=== PATIENT | male | born 1935 | race Hispanic/Latino ===

== ENCOUNTER 2020-02-01 16:40 | Emergency (ER) | payer MEDICARE ==
[~2020-02-01] VITALS: Ht 157.5 cm; Wt 60.3 kg
[~2020-02-01 16:40] MED LIST: 70/30 SC; ACETAMINOPHEN650 M1 PO; ASPIR 8181 MG PO; CAPTOPRIL50 MG PO; FLONASE16 GM; HUMALOG KWIKPEN; HYDROCODON-ACE1 EA12; KEFLEX500 MG PO; LATANOPROST2.5 ML; LATANOPROST2.5 ML OU; LEVOCETIRIZINE D5 MG PO; METOPROLOL SUCC25 MG PO; MULTIVITAMINS1 EAC8; NIFEDIPINE ER30 MG PO; NORCO 7.5-3251 EACH PO; NOVOLOG; NOVOLOG100 UNITS1 SC; PRAVASTATIN SOD40 MG PO; TAMSULOSIN HCL0.4 MG PO; ULTRAM50 MG PO; ZOFRAN4 MG PO; [UNRECOGNIZED DRUG - REMARK]
--- OUTSIDE RECORDS SUMMARY | 2020-02-01 16:46 | XMS REPORT ---
Author Author [facility] Address Unknown Phone Unavailable Care Team Providers Care Systems Mgr Name Role Phone SATINDER HINOJOSA Unavailable Unavailable Problems This patient has no known problems. Allergies, Adverse Reactions, Alerts This patient has no known allergies or adverse reactions. Medications This patient has no known medications. Results Test Description Test Time Test Comments Text Results Atomic Results Result Comments Stress Test - Treadmill ONLY [place] [address] Patient Name : RAND MULLIGAN MR #: [id number] : 1935 Age/Sex: 82/M Adm Physician : SATINDER HINOJOSA MD Admit Date : 08/01/17 Location : MED/SURG Room/Bed : [facility] REPORT: Cardiology Report DATE OF STUDY: August 05, 2017 PROCEDURE TITLE Rest stress single isotope SPECT imaging with pharmacologic stress and gated SPECT imaging. INDICATIONS: Nonsustained ventricular tachycardia. PROCEDURE: Pharmacologic stress testing was performed with regadenoson per protocol. The heart rate was 60 beats per minute at baseline, and juancho to 82 beats per minute during the regadenoson infusion. The rest blood pressure was 181/71 and decreased to 93/44 mmHg, which is a normal response. The patient did not develop any significant symptoms. Resting electrocardiogram demonstrated normal sinus rhythm. There are no ST-segment changes consistent with myocardial ischemia. Myocardial perfusion imaging was performed at rest following the injection of 10 millicuries of tetrofosmin. At peak pharmacologic effect, the patient was injected with 32.1 millicuries of tetrofosmin. Gated post tomographic imaging was performed. FINDINGS: The pharmacologic study is fair. The left ventricular cavity is noted to be normal on the rest and stress studies. SPECT images demonstrate homogenous tracer distribution throughout the myocardium. Gated SPECT imaging reveals normal myocardial thickening and wall motion. The left ventricular ejection fraction was calculated to be greater than 70%. IMPRESSION: Myocardial perfusion imaging is normal. Overall left ventricular systolic function was normal without regional wall motion abnormalities. Job#: [id number] RI cc: SATINDER HINOJOSA MD Signature Date Dictated By: VIRGINIA DAWSON MD Transcribed By: EDS on 08/06/17 <Electronically signed by VIRGINIA DAWSON MD><<Signature on File>>09/08/17 1430 COPY TO: CHEST 2 VIEWS [place] [address] Patient Name: RAND MULLIGAN MR #: [id number] : 1935 Age/Sex: 82/M Req #: [id number] Adm Physician: Ordered by: EDIE CHIN MD Report #: [id number] Location: ER Room/Bed: Procedure: [id number] DX/CHEST 2 VIEWS Exam Date: 08/01/17 Exam Time: 1515 REPORT STATUS: Signed PROCEDURE: Frontal and lateral views of the chest. COMPARISON: Chest x-ray 08/26/2013. INDICATIONS: FEVER FINDINGS: Lines/tubes: None. Lungs: The lungs are well inflated and clear. There is no evidence of pneumonia or pulmonary edema. Pleura: There is no pleural effusion or pneumothorax. Heart and mediastinum: The heart and the mediastinum are normal. Atherosclerotic calcifications in the aorta. Bones: No acute bony abnormality. IMPRESSION: No acute cardiopulmonary disease. Dictated by: Oscar Clark M.D. on 08/01/2017 at 15:32 Electronically approved by: Oscar Clark M.D. on 08/01/2017 at 15:32 Dictated By: OSCAR CLARK MD 1532 Transcribed By: NED on 08/01/17 1532 COPY TO: EDIE CHIN MD
[2020-02-01 17:36] VITALS: BP 114/52
== END 2020-02-01 17:50 | disposition home or self-care (01) ==
LOC: ER 16:40
DX: H60.92 Unspecified otitis externa, left ear (principal); H61.22 Impacted cerumen, left ear; I10 Essential (primary) hypertension; E11.9 Type 2 diabetes mellitus without complications
CPT/HCPCS: 99282

== ENCOUNTER 2020-04-24 14:57 | Inpatient (IN) | payer MEDICARE, OTHER ==
[~2020-04-24] VITALS: Ht 162.6 cm; Wt 60.3 kg
--- OUTSIDE RECORDS SUMMARY | 2020-04-24 15:03 | XMS REPORT ---
Author Author [facility] t Organization [facility] Address [address] [place] [address] Phone Unavailable Care Team Providers Care Creative Resource Manager Name Role Phone YEN STEVENS, SHAWN PCP SATINDER HINOJOSA Attphys Unavailable SATINDER HINOJOSA Admphys Unavailable Payers Payer Name Policy Type Policy Number Effective Date Expiration Date Lucretia cheney Medicare A & B [id number] 2013 00:00:00 C [facility] Problems Condition Name Condition Details Condition Category Status Onset Date Resolution Date Last Treatment Date Treating Clinician Comments Source Atrial fibrillation with rapid ventricular response At [facility] fibrillation with rapid ventricular response Problem Active [facility] Gastroenteritis Gastroenteritis Problem Active [facility] Volume depletion, gastrointestinal loss Volume depletion, ga strointestinal loss Problem Active [facility] Allergies, Adverse Reactions, Alerts This patient has no known allergies or adverse reactions. Medications Ordered Medication Name Filled Medication Name Start Date Stop Da te Current Medication? Ordering Clinician Indication Dosage Frequency Signature (SIG) Comments Components Source 30 Yes 10 Twice A Day [facility] Aspirin (Aspir 81) 81 Mg Tablet. Aspirin (Aspir 81) 81 Mg Tablet. Yes 81 Daily [facility] Captopril 50 Mg Tablet Captopril 50 Mg Tablet Yes 25 Three Times A Day [facility] Cephalexin Monohydrate (Keflex) 500 Mg Capsule Cephale vito Monohydrate (Keflex) 500 Mg Capsule Yes 500 Twice A Day [facility] Humalog Kwikpen Humalog Kwikpen Yes Ss Bid [facility] Hydrocodone Bit/Acetaminophen ([place] 7.5-325 Tablet) 1 Each Tablet Hydrocodone Bit/Acetaminophen ([place] 7.5-325 Tablet) 1 Each Tablet Yes 1 Every 6 Hrs Prn [facility] Latanoprost 2.5 Ml Drops Latanoprost 2.5 Ml Drops Yes 1 Bedtime [facility] Pravastatin Sodium 40 Mg Tablet Pravastatin Sodium 40 Mg Tablet Yes 40 Every Evening [facility] Tamsulosin Hcl 0.4 Mg Cap.er.24h Tamsulosin Hcl 0.4 Mg Cap.er.24h Yes .4 Daily [facility] Novolog , Novolog , 2013-06-18 00:00:00 No [facility] Procedures This patient has no known procedures. Encounters Start Date/Time End Date/Time Encounter Type Admission Type [facility] Care Department Encounter ID Source 2020-02-01 16:40:00 2020-02-01 17:50:00 Departed Emergency Room [facility] [id number] [facility] Results Test Description Test Time Test Comments Results Result Comments Source Stress Test - Treadmill ONLY [place] [address] Patient Name : RAND MULLIGAN MR #: [id number] : 1935 Age/Sex: 82/M Adm Physician : SATINDER HINOJOSA MD Admit Date : 08/01/17 Location : MED/SURG Room/Bed : [facility] REPORT: Cardiology Report DATE OF STUDY: August [...] normal without regional wall motion abnormalities. Job#: [id number] RI cc: SATINDER HINOJOSA MD Signature Date Dictated By: VIRGINIA DAWSON MD Transcribed By: SMEDS on 08/06/17 <Electronically signed by VIRGINIA DAWSON MD><<Signature on File>>09/08/17 1431 COPY TO: CHEST 2 VIEWS [place] [address] Patient Name: RAND MULLIGAN MR #: [id number] : 1935 Age/Sex: 82/M Req #: [id number] Adm Physician: Ordered by: EDIE CHIN MD Report #: [id number] Location: ER Room/Bed: Procedure: [id number] DX/CHEST 2 VIEWS Exam Date: 08/01/17 Exam [...]
[2020-04-24] MEDS ORDERED: PIPER-TAZ 3.375 GM 50 ML IV STA (16:07)
[2020-04-24] MEDS ORDERED: SODIUM CHLORIDE 0.9% 1000ML 1,000 ML IV STA (16:07)
[2020-04-24] MEDS ORDERED: ACETAMINOPHEN 325 MG TAB PO ONE (16:15)
[2020-04-24 16:30] LABS: BASOPHILS # (AUTO) 0.1 (0.0-0.1); BASOPHILS % 0.3 % (0.0-1.0); EOSINOPHILS # (AUTO) 0.2 (0.0-0.4); EOSINOPHILS % 0.8 % (0.0-6.0); HEMATOCRIT 39.6 % (38.2-49.6); HEMOGLOBIN 12.6 g/dL (14.0-18.0); LYMPHOCYTES # (AUTO) 0.7 (1.0-3.2); LYMPHOCYTES % 3.8 % (18.0-39.1); MEAN CORPUSCULAR HEMOGLOBIN 30.1 pg (28-32); MEAN CORPUSCULAR HGB CONC 31.8 g/dL (31-35); MEAN CORPUSCULAR VOLUME 94.7 fL (81-99); MONOCYTES # (AUTO) 1.6 (0.2-0.8); MONOCYTES % 8.3 % (4.4-11.3); NEUTROPHILS # (AUTO) 15.9 (2.1-6.9); NEUTROPHILS % 85.1 % (38.7-80.0); PLATELET COUNT 183 x10e3/uL (140-360); RED BLOOD COUNT 4.18 x10e6/uL (4.3-5.7); RED CELL DISTRIBUTION WIDTH 14.2 % (11.7-14.4)
[2020-04-24 16:32] LABS: CLARITY,URINE CLEAR (CLEAR); COLOR,URINE YELLOW (YELLOW); LEUKOCYTE ESTERASE ,URINE SMALL (NEGATIVE); NITRITE,URINE NEGATIVE (NEGATIVE)
[2020-04-24 16:33] LABS: BILIRUBIN,URINE NEGATIVE (NEGATIVE); KETONES,URINE NEGATIVE (NEGATIVE); PROTEIN,URINE DIPSTICK 2+ (NEGATIVE); URINE UROBILINOGEN 0.2 mg/dL (0.2 - 1)
[2020-04-24 16:51] LABS: ALBUMIN 3.6 g/dL (3.5-5.0); ANION GAP 15.5 mmol/L (8-16); CALCIUM 9.3 mg/dL (8.4-10.2); CREATININE, SERUM 1.91 mg/dL (0.72-1.25); POTASSIUM 4.5 mmol/L (3.5-5.1)
--- NOTE | 2020-04-24 16:51 | Emergency Department Note ---
History of Present Illnes History of Present Illness Chief Complaint: Abdominal Complaints History of Present Illness This is a 85 year old male .c/o left side abd pain dysuria x 2 days CLIENT REPORTS LEFT SIDED ABDOMINAL PAIN AND PAINFUL URINATION FOR THE LAST 2 DAYS. CLIENT REPORTS FEVER WELL. Historian: Patient Arrival Mode: Car Onset (how long ago): day(s) (2 days) Location: left side abd pain Quality: mild Radiation: non-radiation, back, neck, extremity, abdomen, periumbilical, flank, proximal, distal, other Severity: mild Onset quality: gradual Duration (how long): day(s) (2 days ) Timing of current episode: constant Progression: unchanged Context: recent illness, recent surgery, recent immobilization, recent travel, trauma/injury, new medications, hx of DVT/PE, non-compliance w/ medications, other Relieving factors: none Exacerbating factors: none Treatments prior to arrival: none (MARIANNA SCHWARZ NP) Past Medical/Family History Physician Review I have reviewed the patient's past medical and family history. Any updates have been documented here. (MARIANNA SCHWARZ NP) Past Medical History Recent Fever: Yes Clinical Suspicion of Infectio: Yes New/Unexplained Change in Ment: No Past Medical History: Hypertension, Diabetes Past Surgical History: None Other Surgery: RIGHT FOOT PARTIAL AMPUTATION (MARIANNA SCHWARZ NP) Social History Smoking Cessation: Former smoker Counseling Performed: No Alcohol Use: None Any Illegal Drug Use: No TB Exposure/Symptoms: No Physically hurt or threatened: No (MARIANNA SCHWARZ NP) Other Last Tetanus: UNKNOWN Any Pre-Existing Lines (PICC,: No Is patient up to date on immun: Yes Last Flu: utd Last Pneumovax: utd (MARIANNA SCHWARZ NP) Review of Systems Review of Systems Constitutional: no symptoms, fever EENTM: no symptoms Cardiovascular: no symptoms Respiratory: no symptoms Gastrointestinal: abdominal pain (left side abd pain ) Genitourinary: dysuria Musculoskeletal: no symptoms Neurological: no symptoms Psychological: no symptoms Endocrine: no symptoms Hematological/Lymphatic: no symptoms Review of other systems All other systems reviewed and negative. (MARIANNA SCHWARZ NP) Physical Exam Related Data Allergies: Coded Allergies: No Known Allergies (Unverified , 02/15/14) Triage Vital Signs Vital Signs Date Time Temp Pulse Resp B/P (MAP) Pulse Ox O2 Delivery O2 Flow Rate FiO2 04/24/20 15:27 101.5 98 16 120/56 96 Vital Signs Date Time Temp Pulse Resp B/P (MAP) Pulse Ox O2 Delivery O2 Flow Rate FiO2 04/24/20 15:27 101.5 98 16 120/56 96 Vital signs reviewed: Yes (MARIANNA SCHWARZ SOFTWARE PROJECT MANAGER) Physical Exam CONSTITUTIONAL Constitutional: well-developed, well-nourished HENT HENT: normocephalic, atraumatic, oropharynx clear/moist, nose normal HENT L/R: left ext ear normal, right ext ear normal EYES Eyes: PERRL, conjunctivae normal NECK Neck: ROM normal PULMONARY Pulmonary: effort normal, breath sounds normal CARDIOVASCULAR Cardiovascular: regular rhythm, heart sounds normal, capillary refill normal, normal rate GASTROINTESTINAL Abdominal: soft; nontender (minimal left side tenderness ); bowel sounds normal GENITOURINARY Genitourinary: other (c/o dusuria ) SKIN Skin: warm, dry MUSCULOSKELETAL Musculoskeletal: other (left bka noted ) NEUROLOGICAL Neurological: alert, oriented x 3, no gross motor or sensory deficits PSYCHOLOGICAL Psychological: mood/affect normal, judgement normal Exam - additional comments noted temp 101 (MARIANNA SCHWARZ SOFTWARE PROJECT MANAGER) Results Laboratory Result Diagram: 04/24/20 1600 Laboratory Laboratory Tests Test 04/24/20 16:37 04/24/20 16:27 04/24/20 16:00 04/24/20 15:53 Bedside Glucose 101 mg/dL (70-120) White Blood Count 18.71 x10e3/uL (4.8-10.8) Red Blood Count 4.18 x10e6/uL (4.3-5.7) Hemoglobin 12.6 g/dL (14.0-18.0) Hematocrit 39.6 % (38.2-49.6) Mean Corpuscular Volume 94.7 fL (81-99) Mean Corpuscular Hemoglobin 30.1 pg (28-32) Mean Corpuscular Hemoglobin Concent 31.8 g/dL (31-35) Red Cell Distribution Width 14.2 % (11.7-14.4) Platelet Count 183 x10e3/uL (140-360) Neutrophils (%) (Auto) 85.1 % (38.7-80.0) Lymphocytes (%) (Auto) 3.8 % (18.0-39.1) Monocytes (%) (Auto) 8.3 % (4.4-11.3) Eosinophils (%) (Auto) 0.8 % (0.0-6.0) Basophils (%) (Auto) 0.3 % (0.0-1.0) Neutrophils # (Auto) 15.9 (2.1-6.9) Lymphocytes # (Auto) 0.7 (1.0-3.2) Monocytes # (Auto) 1.6 (0.2-0.8) Eosinophils # (Auto) 0.2 (0.0-0.4) Basophils # (Auto) 0.1 (0.0-0.1) Absolute Immature Granulocyte (auto 0.32 x10e3/uL (0-0.1) Sodium Level 140 mmol/L (136-145) Potassium Level 4.5 mmol/L (3.5-5.1) Chloride Level 108 mmol/L (98-107) Carbon Dioxide Level 21 mmol/L (22-29) Anion Gap 15.5 mmol/L (8-16) Blood Urea Nitrogen 38 mg/dL (7-26) Creatinine 1.91 mg/dL (0.72-1.25) Estimat Glomerular Filtration Rate 34 ML/MIN (60-) BUN/Creatinine Ratio 20 (6-25) Glucose Level 101 mg/dL (74-118) Lactic Acid Level 1.6 mmol/L (0.5-2.0) Calcium Level 9.3 mg/dL (8.4-10.2) Total Bilirubin 1.5 mg/dL (0.2-1.2) Aspartate Amino Transf (AST/SGOT) 16 IU/L (5-34) Alanine Aminotransferase (ALT/SGPT) 14 IU/L (0-55) Alkaline Phosphatase 46 IU/L (40-150) Creatine Kinase 308 IU/L (30-200) Creatine Kinase MB 2.10 ng/mL (0-5.0) Troponin I 0.034 ng/mL (0-0.300) Total Protein 7.1 g/dL (6.5-8.1) Albumin 3.6 g/dL (3.5-5.0) Globulin 3.5 g/dL (2.3-3.5) Albumin/Globulin Ratio 1.0 (0.8-2.0) Urine Color Yellow (YELLOW) Urine Clarity Clear (CLEAR) Urine pH 5.5 (5 - 7) Urine Specific [place] >=1.030 (1.010-1.025) Urine Protein 2+ (NEGATIVE) Urine Glucose (UA) Negative (NEGATIVE) Urine Ketones Negative (NEGATIVE) Urine Blood Moderate (NEGATIVE) Urine Nitrite Negative (NEGATIVE) Urine Bilirubin Negative (NEGATIVE) Urine Urobilinogen 0.2 mg/dL (0.2 - 1) Urine Leukocyte Esterase Small (NEGATIVE) Urine RBC 11-20 /HPF (0-5) Urine WBC 21-50 /HPF (0-5) Urine Epithelial Cells Few /LPF (NONE) Urine Bacteria Rare /HPF (NONE) Laboratory Tests Test 04/24/20 16:27 04/24/20 16:00 04/24/20 15:53 Bedside Glucose 101 mg/dL (70-120) White Blood Count 18.71 x10e3/uL (4.8-10.8) Red Blood Count 4.18 x10e6/uL (4.3-5.7) Hemoglobin 12.6 g/dL (14.0-18.0) Hematocrit 39.6 % (38.2-49.6) Mean Corpuscular Volume 94.7 fL (81-99) Mean Corpuscular Hemoglobin 30.1 pg (28-32) Mean Corpuscular Hemoglobin Concent 31.8 g/dL (31-35) Red Cell Distribution Width 14.2 % (11.7-14.4) Platelet Count 183 x10e3/uL (140-360) Neutrophils (%) (Auto) 85.1 % (38.7-80.0) Lymphocytes (%) (Auto) 3.8 % (18.0-39.1) Monocytes (%) (Auto) 8.3 % (4.4-11.3) Eosinophils (%) (Auto) 0.8 % (0.0-6.0) Basophils (%) (Auto) 0.3 % (0.0-1.0) Neutrophils # (Auto) 15.9 (2.1-6.9) Lymphocytes # (Auto) 0.7 (1.0-3.2) Monocytes # (Auto) 1.6 (0.2-0.8) Eosinophils # (Auto) 0.2 (0.0-0.4) Basophils # (Auto) 0.1 (0.0-0.1) Absolute Immature Granulocyte (auto 0.32 x10e3/uL (0-0.1) Urine Color Yellow (YELLOW) Urine Clarity Clear (CLEAR) Urine pH 5.5 (5 - 7) Urine Specific [place] >=1.030 (1.010-1.025) Urine Protein 2+ (NEGATIVE) Urine Glucose (UA) Negative (NEGATIVE) Urine Ketones Negative (NEGATIVE) Urine Blood Moderate (NEGATIVE) Urine Nitrite Negative (NEGATIVE) Urine Bilirubin Negative (NEGATIVE) Urine Urobilinogen 0.2 mg/dL (0.2 - 1) Urine Leukocyte Esterase Small (NEGATIVE) (MARIANNA SCHWARZ NP) Imaging Impressions CONCLUSION: Possible mild wall thickening within the bladder may reflect cystitis in the setting of dysuria. Nonspecific mild bilateral perinephric stranding, which may be infectious, or may not be of clinical significance. Suggest correlation with urinalysis. Prostatomegaly. Hepatic steatosis. Gallbladder distention without CT evidence of cholecystitis or cholelithiasis. Suggest clinical correlation. Right upper quadrant ultrasound may be considered for further evaluation. Signed by: Dr. Pedro Holland MD on 04/24/2020 7:02 PM Dictated By: PEDRO HOLLAND MD 01 Transcribed By: ELVIA on 04/24/201901 (MARIANNA SCHWARZ NP) Procedures 12 Lead ECG Interpretation Marine Chronometer Assembler: Interpreted by ED physician (madelyn) Date: April 24, 2020 Time: 19:10 Prior FROG CATCHER tracings: reviewed Rhythm: sinus rhythm Rate: normal BPM: 76 QRS axis: left (MARIANNA SCHWARZ NP) Marine Chronometer Assembler: Interpreted by ED physician (madelyn) Prior FROG CATCHER tracings: reviewed Rhythm: sinus rhythm Rate: normal (MARIANNA JOSHI DO) Critical Care Time Subsequent provider I assumed direction of critical care for this patient from another provider of my specialty. (MARIANNA SCHWARZ NP) Assessment & Plan Reassessment Reassessment time: 16:10 Reassessment 85y m presented to ed c/o left side abd pain dysuria noted temp 101 - sx x 2 days - discussed plan of care w/ Dr Lomas - lab ct ordered - blood cultures lact ic - pt medicated w/ zosyn vanc and ns liter suspect sepsis source renal /abd pain blood cultures lactic ordered 1610 zosyn given [id number] ns bolus given 1610 meets SIRs criteria vs t 101.5 hr 98 wbc 18.71 at 1627 lactic -1.6 (MARIANNA SCHWARZ SOFTWARE PROJECT MANAGER) Assessment & Plan Final Impression: (1) SEPSIS, UNSPECIFIED ORGANISM (2) URINARY TRACT INFECTION, SITE NOT SPECIFIED Assessment & Plan Dr Lomas / Madelyn in eval pt status - discussed lab results plan of care and need for admit Dr Joshi spoke w/ Dr Zelaya will admit (MARIANNA SCHWARZ SOFTWARE PROJECT MANAGER) Final Impression: (1) SEPSIS, UNSPECIFIED ORGANISM (2) URINARY TRACT INFECTION, SITE NOT SPECIFIED (3) OTHER RETENTION OF URINE (MARIANNA JOSHI DO) Depart Disposition: ADMITTED Last Vital Signs Date Time Temp Pulse Resp B/P (MAP) Pulse Ox O2 Delivery O2 Flow Rate FiO2 04/24/20 16:15 101.3 95 18 163/71 98 (MARIANNA SCHWARZ SOFTWARE PROJECT MANAGER) Home Meds Reported Medications Cephalexin Monohydrate (KEFLEX) 500 Mg Capsule, 500 MG PO BID 08/06/17 Latanoprost (LATANOPROST) 2.5 Ml Drops, 1 DROP OU HS, BOTTLE 08/04/17 Aspirin (ASPIR 81) 81 Mg Tablet.dr, 81 MG PO DAILY 08/04/17 [70/30] No Conflict Check, 10 UNITS SC BID 08/01/17 Pravastatin Sodium (PRAVASTATIN SODIUM) 40 Mg Tablet, 40 MG PO EVERY EVENING 02/15/14 Tamsulosin Hcl (TAMSULOSIN HCL) 0.4 Mg Cap.er.24h, 0.4 MG PO DAILY 02/15/14 Captopril (CAPTOPRIL) 50 Mg Tablet, 25 MG PO TID 02/15/14 [Humalog Kwikpen] No Conflict Check, SS BID 02/15/14 Hydrocodone Bit/Acetaminophen ([place] 7.5-325 TABLET) 1 Each Tablet, 1 TAB PO EVERY 6 HRS PRN 02/15/14 Medications in the ED Sodium Chloride 1,000 ml @ 0 mls/hr Q0M STAT IV Last administered on 04/24/20at 16:28; Admin Dose 999 MLS/HR; Start 04/24/20 at 16:07; Stop 04/24/20 at 16:08 Piperacillin Sod/ Tazobactam Sod 50 ml @ 50 mls/hr ONCE STAT IV ; Start 04/24/20 at 16:07; Stop 04/24/20 at 17:06 Acetaminophen 975 mg ONCE ONCE PO Last administered on 04/24/20at 16:28; Admin Dose 975 MG; Start 04/24/20 at 16:15; Stop 04/24/20 at 16:16 (MARIANNA SCHWARZ SOFTWARE PROJECT MANAGER) Physician Attestation Provider Attestation The patient's history, exam findings, diagnostics, and a summary of any interventions or procedures was reviewed in detail with our SU. I personally interviewed and examined the patient, and I have reviewed and agree with the HPI andexam. My personal exam shows [patient with left sided abd pain. Patient admitted to Dr Alena Zelaya. Noted PVR of 340 cc's. Will add dx of urinary retention. ]. I confirm the diagnosis as documented by the SU. I have reviewed and agree with the care plan articulated in the disposition section. (MARIANNA JOSHI DO) MARIANNA SCHWARZ NP April 24, 2020 16:51 MARIANNA JOSHI DO April 24, 2020 19:18
[2020-04-24 16:57] LABS: BACTERIA,URINE RARE /HPF; EPITHELIAL CELLS,URINE FEW /LPF; WBC,URINE (MAN) 21-50 /HPF (0-5)
[2020-04-24 16:58] LABS: CREATINE KINASE MB 2.1 ng/mL (0-5.0)
[2020-04-24] MEDS ORDERED: VANCOMYCIN 1GM/NS 250 ML 250 ML IV ONE (17:00)
[2020-04-24] MEDS ORDERED: DIATRIZOATE MEGL/DIATRIZOA SOD 30 ML BTL PO ONE (17:19)
--- NOTE | 2020-04-24 17:36 | Diagnostic Imaging Report ---
EXAMINATION: CHEST SINGLE (PORTABLE) INDICATION: Fever, abdominal pain. COMPARISON: Chest radiograph 02-15-2014. FINDINGS: TUBES and LINES: None. LUNGS: Low lung volumes. Mild patchy bibasilar opacity, likely atelectasis. There is no evidence of lobar pneumonia or pulmonary edema. PLEURA: No pleural effusion or pneumothorax. HEART AND MEDIASTINUM: The cardiomediastinal silhouette is unremarkable. There are atherosclerotic calcifications within the aorta. BONES AND SOFT TISSUES: No acute osseous lesion. Soft tissues are unremarkable. UPPER ABDOMEN: No free air under the diaphragm. IMPRESSION: Low lung volumes with mild patchy bibasilar opacities, likely atelectasis. Signed by: Dr. Garrett English MD on 04/24/2020 5:33 PM
[2020-04-24] MEDS ORDERED: SODIUM CHLORIDE 0.9% 50ML 50 ML ONE (18:19)
[2020-04-24] MEDS ORDERED: IOPAMIDOL 370 MG/ML 200 ML INFUS..BTL INJ ONE (18:19)
--- NOTE | 2020-04-24 19:05 | Diagnostic Imaging Report ---
EXAM: CT Abdomen and Pelvis WITH contrast INDICATION: Left-sided abdominal pain. COMPARISON: None. TECHNIQUE: Abdomen and pelvis were scanned utilizing a multidetector helical scanner from the lung base to the pubic symphysis after administration of IV contrast. Coronal and sagittal reformations were obtained. Routine protocol was performed. Scan was performed during portal venous phase. IV CONTRAST: 100 cc of Isovue-300 ORAL CONTRAST: Gastrografin COMPLICATIONS: None RADIATION DOSE: Total DLP: 325 mGy*cm Estimated effective dose: (DLP x 0.015 x size factor) mSv CTDIvol has been reviewed. It is below the limits set by the Radiation Protocol Committee (RPC). FINDINGS: LINES and TUBES: None. LOWER THORAX: Patchy dependent atelectasis. Coronary atherosclerosis. Mild cardiomegaly. HEPATOBILIARY: Hepatic steatosis. No evidence of focal lesion. No biliary ductal dilation. GALLBLADDER: Gallbladder distention without evidence of cholelithiasis or surrounding inflammatory changes. SPLEEN: No splenomegaly. PANCREAS: No focal masses or ductal dilatation. ADRENALS: No adrenal nodules KIDNEYS/URETERS: Nonspecific mild bilateral perinephric stranding. GI TRACT: No evidence of wall thickening or distension. Appendix is normal. Small hiatal hernia. Colonic diverticulosis without evidence of diverticulitis. PELVIC ORGANS/BLADDER: The bladder is partially decompressed and appears circumferentially mildly thick-walled. The prostate is enlarged, measuring up to 6.1 x 5.7 cm. LYMPH NODES: No lymphadenopathy. VESSELS: There is severe atherosclerotic disease in the aorta and major arterial branches. Bilateral common iliac artery stents appear patent, although limited evaluation secondary to phase of contrast. PERITONEUM / RETROPERITONEUM: No free air or fluid. BONES AND SOFT TISSUES: Unremarkable. CONCLUSION: Possible mild wall thickening within the bladder may reflect cystitis in the setting of dysuria. Nonspecific mild bilateral perinephric stranding, which may be infectious, or may not be of clinical significance. Suggest correlation with urinalysis. Prostatomegaly. Hepatic steatosis. Gallbladder distention without CT evidence of cholecystitis or cholelithiasis. Suggest clinical correlation. Right upper quadrant ultrasound may be considered for further evaluation. Signed by: Dr. Garrett English MD on 04/24/2020 7:02 PM
[2020-04-24] MEDS ORDERED: ONDANSETRON HCL INJ 2MG/ML 2ML 2 MG/ML VIAL IV PRN ×2 (19:15→20:45)
[2020-04-24] MEDS ORDERED: MORPHINE SULFATE 2 MG/ML SYR 1ML IV PRN (19:15)
--- OUTSIDE RECORDS SUMMARY | 2020-04-24 19:32 | XMS REPORT ---
Author Author [facility] Organization [facility] Address [address] [place] [address] Phone Unavailable Care Team Providers Care Patient Access Associate Name Role Phone YEN STEVENS, SHAWN PCP Reg MURDOCK Attphys Unavailable SATINDER HINOJOSA Attphys Unavailable SATINDER HINOJOSA Admphys Unavailable Payers Payer Name Policy Type Policy Number Effective Date Expiration Date Lucretia cheney Medicare A & B [id number] 2013 00:00:[address] [facility] Problems Condition Name Condition Details Condition Category Status Onset Date Resolution Date Last Treatment Date Treating Clinician Comments Source Atrial fibrillation with rapid ventricular response At [facility] fibrillation with rapid ventricular response Problem Active [facility] Gastroenteritis Gastroenteritis Problem Active [facility] Volume depletion, gastrointestinal loss Volume depletion, ga strointestinal loss Problem Active [facility] Allergies, Adverse Reactions, Alerts This patient has no known allergies or adverse reactions. Medications Ordered Medication Name Filled Medication Name Start Date Stop Da te Current Medication? Ordering Clinician Indication Dosage Frequency Signature (SIG) Comments Components Source 70/30 70/30 Yes 10 Twice A Day [facility] Aspirin (Aspir 81) 81 Mg Tablet. Aspirin (Aspir 81) 81 Mg Tablet. Yes 81 Daily [facility] Captopril 50 Mg Tablet Captopril 50 Mg Tablet Yes 25 Three Times A Day [facility] Cephalexin Monohydrate (Keflex) 500 Mg Capsule Cephale vito Monohydrate (Keflex) 500 Mg Capsule Yes 500 Twice A Day [facility] Humalog Kwikpen Humalog Kwikpen Yes Ss Bid [facility] Hydrocodone Bit/Acetaminophen ([place] 7.5-325 Tablet) 1 Each Tablet Hydrocodone Bit/Acetaminophen ([place] 7.5-325 Tablet) 1 Each Tablet Yes 1 Every 6 Hrs Prn [facility] Latanoprost 2.5 Ml Drops Latanoprost 2.5 Ml Drops Yes 1 Bedtime [facility] Pravastatin Sodium 40 Mg Tablet Pravastatin Sodium 40 Mg Tablet Yes 40 Every Evening [facility] Tamsulosin Hcl 0.4 Mg Cap.er.24h Tamsulosin Hcl 0.4 Mg Cap.er.24h Yes .4 Daily [facility] Novolog , Novolog , 2013-06-18 00:00:00 No [facility] Procedures This patient has no known procedures. Encounters Start Date/Time End Date/Time Encounter Type Admission Type Attendi [facility] Care Department Encounter ID Source 2020-02-01 16:40:00 2020-02-01 17:50:00 Departed Emergency Room [facility] [id number] [facility] Results Test Description Test Time Test Comments Results Result Comments Source CT ABDOMEN/PELVIS W 2020-04-24 18:52:00 [facility] [address] [address] Patient Name: RAND MULLIGAN MR #: [id number] : 1935 Age/Sex: 85/M Req #: [id number] Adm Physician: Ordered by: MARIANNA SCHWARZ [employer] INSTALLER Report #: [id number] Location: ER Room/Bed: Procedure: [id number] CT/CT ABDOMEN/PELVIS W Exam Date: 04/24/20 Exam Time: 1750 REPORT STATUS: Signed EXAM: CT Abdomen and Pelvis WITH contrast INDICATION: Left-sided abdominal pain. COMPARISON: None. TECHNIQUE: Abdomen and pelvis were scanned utilizing a multidetector helical scanner from the lung base to the pubic symphysis after administration of IV contrast. Coronal and sagittal reformations were obtained. Routine protocol was performed. Scan was performed during portal venous phase. IV CONTRAST: 100 cc of Isovue-300 ORAL CONTRAST: Gastrografin COMPLICATIONS: None RADIATION DOSE: Total DLP: 325 mGy*cm Estimated effective dose: (DLP x 0.015 x size factor) mSv CTDIvol has be en reviewed. It is below the limits set by the Radiation Protocol Committee (RPC). FINDINGS: LINES and TUBES: None. LOWER THORAX: Patchy dependent atelectasis. Coronary atherosclerosis. Mild cardiomegaly. HEPATOBILIARY: Hepatic steatosis. No evidence of focal lesion. No biliary ductal dilation. GALLBLADDER: Gallbladder distention without evidence of cholelithiasis or surrounding inflammatory changes. SPLEEN: No splenomegaly. PANCREAS: No focal masses or ductal dilatation. ADRENALS: No adrenal nodules KIDNEYS/URETERS: Nonspecific mild bilateral perinephric stranding. GI TRACT: No evidence of wall thickening or distension. Appendix is normal. Small hiatal hernia. Colonic diverticulosis without evidence of diverticulitis. PELVIC ORGANS/BLADDER: The bladder is partially decompressed and appears circumferentially mildly thick-walled. The prostate is enlarged, measuring up to 6.1 x 5.7 cm. LYMPH NODES: No lymphadenopathy. VESSELS: There is severe atherosclerotic disease in the aorta and major arterial branches. Bilateral common iliac artery stents appear patent, although limited evaluation secondary to phase of contrast. PERITONEUM / RETROPERITONEUM: No free air or fluid. BONES AND SOFT TISSUES: Unremarkable. CONCLUSION: Possible mild wall thickening within the bladder may reflect cystitis in the setting of dysuria. Nonspecific mild bilateral perinephric stranding, which may be infectious, or may not be of clinical significance. Suggest correlation with urinalysis. Prostatomegaly. Hepatic steatosis. Gallbladder distention without CT evidence of cholecystitis or cholelithiasis. Suggest clinical correlation. Right upper quadrant ultrasound may be considered for further evaluation. Signed by: Dr. Pedro Holland MD on 04/24/2020 7:02 PM Dictated By: PEDRO HOLLAND MD 01 Transcribed By: ELVIA on 04/24/201901 COPY TO: MARIANNA SCHWARZ [employer] INST[employer]ER CHEST SINGLE (PORTABLE) 2020-04-24 17:30:00 [address] [address] Patient Name: RAND MULLIGAN MR #: [id number] : 1935 Age/Sex: 85/M Req #: [id number] Adm Physician: Ordered by: MARIANNA SCHWARZ [employer] INST[employer]ER Report #: [id number] Location: ER Room/Bed: Procedure: [id number] DX/CHEST SINGLE (PORTABLE) Exam Date: 04/24/20 Exam Time: 1630 REPORT STATUS: Signed EXAMINATION: CHEST SINGLE (PORTABLE) INDICATION: Fever, abdominal pain. COMPARISON: Chest radiograph 02-15-2014. FINDINGS: TUBES and LINES: None. LUNGS: Low lung volumes. Mild patchy bibasilar opacity, likely atelectasis. There is no evidence of lobar pneumonia or pulmonary edema. PLEURA: No pleural effusion or pneumothorax. HEART AND MEDIASTINUM: The cardiomediastinal silhouette is unremarkable. There are atherosclerotic calcifications within the aorta. BONES AND SOFT TISSUES: No acute osseous lesion. Soft tissues are unremarkable. UPPER ABDOMEN: No free air under the diaphragm. IMPRESSION: Low lung volumes with mild patchy bibasilar opacities, likely atelectasis. Signed by: Dr. Pedro Holland MD on 04/24/2020 5:33 PM Dictated By: PEDRO HOLLAND MD 32 Transcribed By: ELVIA on 04/24/201732 COPY TO: MARIANNA SCHWARZ [employer] INSTALLER Stress Test - Treadmill ONLY [address] [address] Patient Name : RAND MULLIGAN MR #: [id number] : 1935 Age/Sex: 82/M Adm Physician : [...] normal without regional wall motion abnormalities. Job#: [id number] cc: SATINDER HINOJOSA MD Signature Date Dictated By: VIRGINIA DAWSON MD Transcribed By: SMEDS on 08/06/17 <Electronically signed by VIRGINIA DAWSON MD><<Signature on File>>09/08/17 4499 COPY TO: CHEST 2 VIEWS [facility] [address] [address] Patient Name: RAND MULLIGAN MR #: [id number] : 1935 Age/Sex: 82/M Req #: [id number] Adm Physician: Ordered by: EDIE CHIN MD Report #: [id number] Location: ER Room/Bed: Procedure: [id number] DX/CHEST 2 VIEWS Exam Date: 08/01/17 Exam [...] IMPRESSION: No acute cardiopulmonary disease. Dictated by: Bean Clark M.D. on 08/01/2017 at 15:32 Electronically approved by: Bean Clark M.D. on 08/01/2017 at 15:32 Dictated By: BEAN CLARK MD 1532 Transcribed By: NED on 08/01/17 1532 COPY TO: EDIE CHIN MD
--- NOTE | 2020-04-24 19:45 | NUR ---
pt c/o having urge to urinate, pt unable to void in urinal x 3 attempts. md informed. bladder scan ordered. 400 and 354cc detected c bladder scanner. md informed. lucia catheter ordered. 16 fr lucia catheter inserted using sterile technique. 425cc cloudy yellow urine return noted. informed.
--- NOTE | 2020-04-24 20:36 | NUR ---
H&P cc: dysuria and urinary retention HPI: 85yoM, PCP , developed urinary retention and burning urination for 3 days, with some nausea. No f/c/s. Found to have UTI, and urinary retention addressed by placement of aparicio in ER. 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
[2020-04-24] MEDS ORDERED: DOCUSATE SODIUM 100 MG CAP PO PRN (20:45)
[2020-04-24] MEDS ORDERED: ACETAMINOPHEN 325 MG TAB PO PRN (20:45)
[2020-04-24] MEDS ORDERED: NON-FORMULARY MEDICATION (Pravastatin Sodium 40 MG) PO SCH (20:45)
[2020-04-24] MEDS ORDERED: ZOLPIDEM TARTRATE 5 MG TAB PO PRN (20:45)
[2020-04-24] MEDS: LATANOPROST(OPTH) 2.5 ML BTL OU SCH (21:00)
[2020-04-24] MEDS ORDERED: CAPTOPRIL 25 MG PO SCH (21:00)
[2020-04-24] MEDS: SODIUM CHLORIDE 0.9% 1000ML 1,000 ML IV SCH (21:05)
[2020-04-24] MEDS: HEPARIN SOD (PORCINE) 5,000 UNIT/ML VIAL SC SCH ×2 (21:19→21:36)
--- NOTE | 2020-04-24 21:35 | NUR ---
pt c pink tinged urine to lucia catheter. sq heparin held at this time. dr solano called and informed. ordered to hold heparin. states to consult dr george in am.
[2020-04-24 22:07] VITALS: BP 151/71
--- NOTE | 2020-04-24 22:25 | Diagnostic Imaging Report ---
EXAM: Right Upper Quadrant Ultrasound with Doppler INDICATION: Right upper quadrant pain COMPARISON: Same day abdominal CT TECHNIQUE: Transverse and longitudinal images of the right upper abdomen were obtained. Grayscale, color Doppler and spectral waveform analysis of the hepatic vasculature and splenic vein were performed. FINDINGS: Liver: Size: 14 cm in the right midclavicular line, normal Appearance: Normal echogenicity, smooth contour Mass: No focal masses Gallbladder: Stones/Sludge: None Wall: 0.32 cm, mildly thickened and heterogeneous Appearance: Hydropic, 5.6 cm in transverse diameter, 10.6 cm in long axis. Sonographic Friedman's Sign: Negative Bile Ducts: Intrahepatic Ducts: No dilatation Extrahepatic Ducts: Common bile duct measures not seen cm, no dilatation Pancreas: Not seen Right Kidney: Size: 10.8 cm Echogenicity: Normal Parenchymal thickness: Normal Collecting system: No hydronephrosis Stones: None Cyst/Mass: None Vessels: Main Portal Vein: Diameter: 0.62 cm, normal. Normal flow direction. Aorta: Atherosclerosis. Inferior Vena Cava: Visualized portions are normal Free Fluid: No ascites or pleural effusion IMPRESSION: Gallbladder hydrops and subtle findings which raise suspicion for cholecystitis. No gallstones or sludge identified. Signed by: Ronald Stewart DO on 04/24/2020 10:22 PM
[2020-04-24 23:35] VITALS: BP 151/71
[2020-04-25] VITALS (8 sets, daily range): BP systolic 128–175; BP diastolic 56–82
[2020-04-25] MEDS: PIPER-TAZ 3.375 GM 50 ML IV SCH ×4 (00:03→22:27)
[2020-04-25] MEDS: SODIUM CHLORIDE 0.9% 1000ML 1,000 ML IV SCH ×3 (05:10→19:15)
[2020-04-25 06:14] LABS: BASOPHILS % 0.2 % (0.0-1.0); EOSINOPHILS % 0.1 % (0.0-6.0); HEMATOCRIT 35.7 % (38.2-49.6); HEMOGLOBIN 11.6 g/dL (14.0-18.0); LYMPHOCYTES # (AUTO) 0.7 (1.0-3.2); LYMPHOCYTES % 4.3 % (18.0-39.1); MEAN CORPUSCULAR HEMOGLOBIN 30.4 pg (28-32); MEAN CORPUSCULAR HGB CONC 32.5 g/dL (31-35); MEAN CORPUSCULAR VOLUME 93.5 fL (81-99); MONOCYTES # (AUTO) 1.3 (0.2-0.8); NEUTROPHILS # (AUTO) 14.2 (2.1-6.9); NEUTROPHILS % 85.6 % (38.7-80.0); PLATELET COUNT 142 x10e3/uL (140-360); RED BLOOD COUNT 3.82 x10e6/uL (4.3-5.7); RED CELL DISTRIBUTION WIDTH 14.1 % (11.7-14.4)
[2020-04-25 06:39] LABS: ALBUMIN 2.9 g/dL (3.5-5.0); ANION GAP 11.1 mmol/L (8-16); CALCIUM 8.2 mg/dL (8.4-10.2); CREATININE, SERUM 1.37 mg/dL (0.72-1.25); POTASSIUM 4.1 mmol/L (3.5-5.1)
[2020-04-25 06:59] LABS: CHOL/HDL RATIO 3.3 (3.9-4.7)
[2020-04-25] MEDS: FAMOTIDINE 20 MG TAB PO SCH ×2 (07:30→16:30)
[2020-04-25] MEDS: HEPARIN SOD (PORCINE) 5,000 UNIT/ML VIAL SC SCH ×2 (09:00→21:00)
[2020-04-25] MEDS: ASPIRIN 81 MG CHEW TAB PO SCH (09:04)
[2020-04-25] MEDS: CAPTOPRIL 25 MG TAB PO SCH ×3 (09:05→21:15)
[2020-04-25] MEDS: TAMSULOSIN HCL 0.4 MG CAP PO SCH (09:05)
[2020-04-25] MEDS ORDERED: METOPROLOL SUCC25 MG PO (09:09)
[2020-04-25] MEDS ORDERED: PIOGLITAZONE HC45 MG PO (09:09)
[2020-04-25] MEDS ORDERED: WARFARIN SODIUM3 MG PO (09:09)
[2020-04-25] MEDS ORDERED: LISINOPRIL2.5 MG PO (09:09)
[2020-04-25] MEDS ORDERED: FAMOTIDINE20 MG PO (09:09)
[2020-04-25] MEDS ORDERED: LEVOCETIRIZINE D5 MG PO (09:09)
[2020-04-25] MEDS ORDERED: NOVOLIN N100 UNIT/1 (09:10)
[2020-04-25] MEDS ORDERED: DEXTROSE 50% SYRINGE 50 ML IV PRN (16:00)
--- NOTE | 2020-04-25 16:37 | NUR ---
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 continue IV zosyn. Demian Zelaya MD, PhD.
[2020-04-25] MEDS: INSULIN REGULAR, HUMAN 100 UNIT/1 ML 3ML VIAL SQ SCH ×2 (16:44→21:15)
--- NOTE | 2020-04-25 19:25 | NUR ---
Resumed care of patient. Patient awake and resting in bed, no s/s of distress, denies needs at this time. All safety measures in place. Will continue to monitor.
[2020-04-25] MEDS: LATANOPROST(OPTH) 2.5 ML BTL OU SCH (21:15)
[2020-04-25] MEDS: PRAVASTATIN 20 MG TAB PO SCH (21:15)
[2020-04-26] VITALS (7 sets, daily range): BP systolic 118–171; BP diastolic 43–70
[2020-04-26] MEDS: SODIUM CHLORIDE 0.9% 1000ML 1,000 ML IV SCH ×4 (03:15→23:28)
[2020-04-26] MEDS: PIPER-TAZ 3.375 GM 50 ML IV SCH ×3 (05:08→21:41)
--- NOTE | 2020-04-26 05:25 | NUR ---
Patient removed peripheral IV to left forearm. Attempted to start new IV. Patient became very combative, swinging at nursing staff, stating that he just wants to sleep. Refusing IV start, labs, and vital signs at this time, saying that "if anyone touches him he will run out and leave." Educated patient on plan of care. Patient reiterates that he "doesn't care and just wants to sleep."
--- NOTE | 2020-04-26 06:17 | NUR ---
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 continue IV zosyn. 6-2 check labs; control BP; Subconjunctival hemorrhage- control BP; give artificial tears. Leukocytosis resolving; ALEXA resolving; d/c planning; Demian Zelaya MD, PhD.
--- NOTE | 2020-04-26 07:00 | NUR ---
received bedside report. pt is sleeping in bed, no s/s of distress. call light within reach and bed safety in place
--- NOTE | 2020-04-26 07:04 | NUR ---
Bedside report given to oncoming nurse. Patient resting quietly in bed, respirations even and unlabored, no s/s of distress at this time. All safety measures in place.
[2020-04-26 07:10] LABS: BASOPHILS % 0.2 % (0.0-1.0); EOSINOPHILS % 0.2 % (0.0-6.0); HEMATOCRIT 34.5 % (38.2-49.6); HEMOGLOBIN 11.3 g/dL (14.0-18.0); LYMPHOCYTES # (AUTO) 0.7 (1.0-3.2); LYMPHOCYTES % 5.5 % (18.0-39.1); MEAN CORPUSCULAR HEMOGLOBIN 30.5 pg (28-32); MEAN CORPUSCULAR HGB CONC 32.8 g/dL (31-35); NEUTROPHILS # (AUTO) 10.6 (2.1-6.9); NEUTROPHILS % 85.4 % (38.7-80.0); PLATELET COUNT 151 x10e3/uL (140-360); RED BLOOD COUNT 3.71 x10e6/uL (4.3-5.7); RED CELL DISTRIBUTION WIDTH 13.8 % (11.7-14.4)
[2020-04-26 07:26] LABS: ANION GAP 10.7 mmol/L (8-16); CALCIUM 8.1 mg/dL (8.4-10.2); CREATININE, SERUM 1.16 mg/dL (0.72-1.25); POTASSIUM 3.7 mmol/L (3.5-5.1)
[2020-04-26] MEDS: FAMOTIDINE 20 MG TAB PO SCH ×2 (07:30→16:30)
[2020-04-26] MEDS: INSULIN REGULAR, HUMAN 100 UNIT/1 ML 3ML VIAL SQ SCH ×4 (07:30→20:49)
[2020-04-26] MEDS: HEPARIN SOD (PORCINE) 5,000 UNIT/ML VIAL SC SCH ×2 (09:00→21:00)
[2020-04-26] MEDS: TAMSULOSIN HCL 0.4 MG CAP PO SCH (09:09)
[2020-04-26] MEDS: NIFEDIPINE CR 30 MG TAB PO SCH (09:09)
[2020-04-26] MEDS: ASPIRIN 81 MG CHEW TAB PO SCH (09:09)
--- NOTE | 2020-04-26 09:19 | NUR ---
pt's sclera in right eye is blood shot, this is new change overnight. notified Dr. Zelaya and received no orders as of now. will continue to monitor patient
[2020-04-26] MEDS: ARTIFICIAL TEARS (OPTH) 15 ML BTL OP SCH ×2 (14:29→20:49)
--- NOTE | 2020-04-26 14:44 | Consultation ---
DATE OF CONSULTATION: 04/25/2020 Urology consultation REASON FOR CONSULTATION: Urinary retention, hematuria. HISTORY OF PRESENT ILLNESS: Humphrey Jeong is an 85-year-old man, who really does not provide us a very good history, but he apparently reported the emergency room, where he was in urinary retention for 900 mL. Following decompression, the patient developed gross hematuria and urological consultation was then sought. The patient denies previous hematuria, dysuria, drug infections, or urolithiasis. Denies ever seeing a urologist. The patient had some sort of surgery that caused his left testicle shrink in the past. He cannot recall exactly what surgery he had. Upon presentation to the emergency room, he had painful urination for two days and subjective fever. PAST MEDICAL AND SURGICAL HISTORY: 1. Status post right foot partial amputation. 2. Hypertension. 3. Diabetes. 4. Status post right inguinal procedure that resulted in with a small or vanishing left testis. ALLERGIES: NONE KNOWN. CURRENT MEDICATIONS: Please refer to the MAR. SOCIAL HISTORY: The patient was a smoker when he was young. He denies current smoking, ethanol, or drug use. He is retired from the railroad. FAMILY HISTORY: Noncontributory to the active urological problems. REVIEW OF SYSTEMS: Discussed as above history of present illness past medical history, otherwise negative for all other systems. PHYSICAL EXAMINATION: GENERAL: A pleasant elderly man, lying in bed, in no apparent distress. VITAL SIGNS: He is currently afebrile. Vital signs currently stable. ABDOMEN: Soft, nondistended, nontender without costovertebral angle tenderness. Kidneys not palpable without hepatosplenomegaly. No obvious evidence of hernia. GENITOURINARY: Right testis is descended and it is nontender. The patient has a normal male phallus with a Alaniz catheter in place draining bloody urine out. The left testis could not be discerned well. For the remaining physical examination systems, please refer to the admission history and physical on the chart. LABORATORY STUDIES: Urine cultures are pending. Blood cultures are pending. White blood cell count is 16,570, hemoglobin 11.6, and platelets 142,000. The patient's creatinine was 1.91 upon presentation, today was 1.37. Calcium is low at 8.2. Urinalysis significant for pyuria and hematuria. CT scan of the abdomen and pelvis was done, it revealed gallbladder distention which I defer the primary physician. Also enlarged prostate measuring 6.1 x 5.7 . Unfortunately, the radiologist only measured two dimensions of this three-dimensional organ so, we do not have a volume calculation. There is nonspecific bilateral perinephric stranding noted on CT. ASSESSMENT: 1. Urinary retention for 900 mL. 2. Gross hematuria. 3. Leukocytosis. 4. Anemia. 5. Acute renal failure that is improving. 6. Urinary tract infection. 7. Benign prostatic hyperplasia. 8. Alaniz catheter in situ. 9. Hypocalcemia. PLAN: 1. I instructed the nurse in regularly irrigating the patient's Alaniz catheter. 2. Recommend awaiting culture and sensitivity and adjusting antibiotics accordingly. 3. Continue antibiotics. 4. The patient will definitely need that very early cystoscopy and retrograde ureteropyelography. He most likely will also need a transurethral resection of the prostate at some point. 5. I recommend decreasing the Zosyn dose to 2.25 q.8 hours due to the fact the patient is 85 years old. Thank you much for involving us in care of your patient. We will be happy to follow along with you as well as an outpatient. Christian MD [place]/MODL /[id number] cc: Raudel Murphy MD
--- NOTE | 2020-04-26 14:48 | NUR ---
Nutrition Screen Note RD Recommendation for Physician: - Recommend adding 1800 ADA to current diet Plan of Care: RD following, monitoring for tolerance and adequacy Nutrition reason for involvement: Nutrition Risk Trigger Primary Diagnose(s): UTI, renal insufficiency, cholelithiasis PMH: PAF, DM, HTN, CHF, L BKA Ht: 64 in Wt: 133 lb BMI: 22.8 kg/m2 IBW: [address] Assessment: (04/26) 85 YOM admitted for a UTI, seen per MST screen. Pt reports good appetite and intake up until day before admit, reports poor intake x 1 day, and currently eating well. Pt denies wt loss and denies GI distress. Pt and at bedside with no questions or concerns. Chart reviewed. Labs and meds reviewed. Will continue to monitor. Current Diet: Cardiac Malnutrition Evaluation (04/26/20) The patient does not meet criteria for a specified degree of malnutrition at this time. Will re-evaluate at follow-up as appropriate. Diet Education Needs Assessment: Diet education not indicated. Diet tolerance: tolerating po Nutrition Care Level: low Signed: Marisabel Mcgill RD, LD, [facility]
--- NOTE | 2020-04-26 19:06 | NUR ---
Resumed care of patient. Patient awake and resting in bed, no s/s of distress at this time. All safety measures in place. Will continue to monitor.
[2020-04-26] MEDS: LATANOPROST(OPTH) 2.5 ML BTL OU SCH (20:49)
[2020-04-26] MEDS: PRAVASTATIN 20 MG TAB PO SCH (20:49)
[2020-04-27] VITALS (10 sets, daily range): BP systolic 118–124; BP diastolic 45–59
[2020-04-27] MEDS: NIFEDIPINE CR 30 MG TAB PO SCH (05:33)
[2020-04-27] MEDS: PIPER-TAZ 3.375 GM 50 ML IV SCH (05:33)
--- NOTE | 2020-04-27 07:04 | NUR ---
Bedside report given to day nurse. Patient awake and resting in bed, no s/s of distress at this time. All safety measures in place.
[2020-04-27] MEDS: FAMOTIDINE 20 MG TAB PO SCH ×3 (08:24→17:22)
[2020-04-27] MEDS: ASPIRIN 81 MG CHEW TAB PO SCH (08:24)
[2020-04-27] MEDS: TAMSULOSIN HCL 0.4 MG CAP PO SCH (08:24)
[2020-04-27] MEDS: ARTIFICIAL TEARS (OPTH) 15 ML BTL OP SCH ×3 (08:24→21:04)
[2020-04-27] MEDS: HEPARIN SOD (PORCINE) 5,000 UNIT/ML VIAL SC SCH ×2 (09:27→21:04)
[2020-04-27] MEDS: INSULIN REGULAR, HUMAN 100 UNIT/1 ML 3ML VIAL SQ SCH ×4 (09:27→21:05)
--- NOTE | 2020-04-27 10:38 | NUR ---
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 continue IV zosyn. 6-2 check labs; control BP; Subconjunctival hemorrhage- control BP; give artificial tears. Leukocytosis resolving; ALEXA resolving; d/c planning; 6-3 check CBC; Hemturia improving; BP much better; d/c planning; Demian Zelaya MD, PhD.
[2020-04-27] MEDS: SODIUM CHLORIDE 0.9% 1000ML 1,000 ML IV SCH ×2 (11:49→18:31)
[2020-04-27] MEDS: CEFAZOLIN SOD 1 GM/NS 50ML 50 ML IV SCH ×2 (12:48→21:03)
[2020-04-27] MEDS ORDERED: CEFAZOLIN SOD 1 GM VIAL IV SCH (14:00)
[2020-04-27] MEDS: PRAVASTATIN 20 MG TAB PO SCH (21:04)
[2020-04-27] MEDS: LATANOPROST(OPTH) 2.5 ML BTL OU SCH (21:04)
--- NOTE | 2020-04-27 22:08 | NUR ---
Cardiology Consult Dictation# [id number]
[2020-04-28] VITALS (11 sets, daily range): BP systolic 124–130; BP diastolic 55–67
[2020-04-28] MEDS: SODIUM CHLORIDE 0.9% 1000ML 1,000 ML IV SCH ×3 (03:17→17:09)
--- NOTE | 2020-04-28 04:02 | Consultation ---
DATE OF CONSULTATION: 04/27/2020 Cardiology Consultation REQUESTING PHYSICIAN: Demian Zelaya MD REASON FOR CONSULTATION: Preoperative evaluation. HISTORY OF PRESENT ILLNESS: This is an 85-year-old man with history of hypertension, hyperlipidemia, and paroxysmal atrial fibrillation, and peripheral artery disease, who presented with complaints of abdominal pain and dysuria. He was found to have E. coli UTI and admitted for further care due to urinary retention. Urology was consulted and found to have gross hematuria. He is planned for cystoscopy and retrograde ureteropyelography as well as TURP and Cardiology consulted for preoperative evaluation. The patient denies any cardiac complaints. He denies chest pain, shortness of breath, palpitations, edema, orthopnea, PND, or lightheadedness. He is status post left BKA, but reports he walks around the house without difficulty. REVIEW OF SYSTEMS: Negative except as per HPI. PAST MEDICAL HISTORY: 1. Diabetes mellitus. 2. Hyperlipidemia. 3. Paroxysmal atrial fibrillation. 4. Peripheral arterial disease. 5. Chronic diastolic heart failure with pseudonormal LV filling. PAST SURGICAL HISTORY: Left BKA. SOCIAL HISTORY: No tobacco use. No alcohol or illicit drugs. FAMILY HISTORY: Noncontributory to current illness. ALLERGIES: NO KNOWN DRUG ALLERGIES. CURRENT MEDICATIONS: Please see medication list. PHYSICAL EXAMINATION: VITAL SIGNS: Temperature 98.7 degrees, pulse 89, respiratory rate 18, blood pressure 110/45, and oxygen saturation 99% on room air. GENERAL: Elderly man, in no acute distress. Well developed, well nourished. HEENT: Normocephalic, atraumatic. Pupils equal. No scleral icterus. NECK: Supple. No thyroid or cervical lymphadenopathy. No carotid bruits. LUNGS: Clear to auscultation bilaterally. No wheezes or crackles. CARDIAC: Normal rate, regular rhythm. No murmur. Normal S1, S2. ABDOMEN: Soft, nontender. EXTREMITIES: No edema. Left BKA. NEUROLOGIC: Nonfocal exam. SKIN: No rash appreciated. LABORATORY DATA: Pertinent labs reviewed. TELEMETRY: EKG normal sinus rhythm, left axis deviation. IMPRESSION: 1. Escherichia coli urinary tract infection. 2. Preoperative evaluation. 3. Paroxysmal atrial fibrillation. 4. Hypertension. 5. Hyperlipidemia. 6. Diabetes mellitus. 7. Hypertension. 8. Hyperlipidemia. 9. Diabetes mellitus. 10. Peripheral arterial disease, status post left below-knee amputation. 11. Chronic diastolic heart failure with pseudonormal LV filling and preserved LV systolic function. Coronary atherosclerosis on CT of the abdomen and pelvis. RECOMMENDATIONS: The patient denies any cardiac complaints. Obtain echocardiogram to re-evaluate the patient's LVEF. The patient had a nuclear stress test performed in 2016, with normal perfusion. We will review echo images. Continue current cardiac medications. Monitor the patient on telemetry. Further recommendations to follow. Thank you for this consult. We will continue to follow. Bettye Contreras MD ABS/MODL /[id number]
[2020-04-28] MEDS: CEFAZOLIN SOD 1 GM/NS 50ML 50 ML IV SCH ×3 (04:31→23:02)
[2020-04-28] MEDS: NIFEDIPINE CR 30 MG TAB PO SCH (06:15)
[2020-04-28 07:30] LABS: BASOPHILS % 0.4 % (0.0-1.0); EOSINOPHILS # (AUTO) 0.2 (0.0-0.4); EOSINOPHILS % 3.4 % (0.0-6.0); HEMATOCRIT 31.4 % (38.2-49.6); HEMOGLOBIN 10.2 g/dL (14.0-18.0); LYMPHOCYTES # (AUTO) 0.8 (1.0-3.2); LYMPHOCYTES % 16.8 % (18.0-39.1); MEAN CORPUSCULAR HEMOGLOBIN 30.5 pg (28-32); MEAN CORPUSCULAR HGB CONC 32.5 g/dL (31-35); MONOCYTES # (AUTO) 0.6 (0.2-0.8); MONOCYTES % 12.6 % (4.4-11.3); NEUTROPHILS # (AUTO) 3.3 (2.1-6.9); NEUTROPHILS % 65.6 % (38.7-80.0); PLATELET COUNT 154 x10e3/uL (140-360); RED BLOOD COUNT 3.34 x10e6/uL (4.3-5.7)
[2020-04-28] MEDS: INSULIN REGULAR, HUMAN 100 UNIT/1 ML 3ML VIAL SQ SCH ×4 (07:30→21:00)
[2020-04-28 07:49] LABS: CALCIUM 7.7 mg/dL (8.4-10.2); CREATININE, SERUM 1.17 mg/dL (0.72-1.25)
[2020-04-28] MEDS: ARTIFICIAL TEARS (OPTH) 15 ML BTL OP SCH ×3 (08:44→22:24)
[2020-04-28] MEDS: TAMSULOSIN HCL 0.4 MG CAP PO SCH (09:07)
[2020-04-28] MEDS: HEPARIN SOD (PORCINE) 5,000 UNIT/ML VIAL SC SCH ×2 (09:21→21:00)
--- NOTE | 2020-04-28 12:23 | Progress Note ---
DATE: 04/28/2020 Cardiology Progress Note SUBJECTIVE: The patient denies chest pain or shortness of breath. OBJECTIVE: VITAL SIGNS: Temperature 99.2 degrees, pulse 88, respiratory rate 16, blood pressure 129/55, oxygen saturation 98% on room air. GENERAL: Awake and alert, in no acute distress, elderly man. LUNGS: Clear to auscultation bilaterally. No wheezes or crackles. CARDIOVASCULAR: Normal rate. Regular rhythm. No murmur. Normal S1 and S2. ABDOMEN: Soft and nontender. EXTREMITIES: No edema. Left BKA. CARDIAC MEDICATIONS: Nifedipine 60 mg p.o. daily. LABORATORY DATA: WBC 5, hemoglobin 10.2, hematocrit 31.4, platelets 154. Sodium 139, potassium 4, chloride 113, CO2 21, BUN 18, creatinine 1.17. Telemetry was personally reviewed and interpreted, revealing normal sinus rhythm. IMPRESSION: 1. Escherichia coli urinary tract infection. 2. Preoperative evaluation. 3. Paroxysmal atrial fibrillation. 4. Hypertension. 5. Hyperlipidemia. 6. Diabetes mellitus. 7. Peripheral arterial disease. 8. Chronic diastolic heart failure with pseudonormal LV filling and preserved LV systolic function as of 2017. 9. Coronary atherosclerosis on CT of the abdomen and pelvis. RECOMMENDATIONS: The patient denies any cardiac complaints. Nuclear stress test was performed in 2017 with normal perfusion. Echocardiogram has been ordered but has not yet been done. We will review images once available. Continue current cardiac medications. Monitor the patient on telemetry. Thank you for this consult. We will continue to follow. Bettye Contreras MD ABS/MODL /[id number]
[2020-04-28] MEDS: FAMOTIDINE 20 MG TAB PO SCH (15:18)
--- NOTE | 2020-04-28 19:10 | NUR ---
BEDSIDE SHIFT REPORT RECEIVED FROM DAY RN. RESPIRATIONS EVEN AND UNLABORED. PT HAS DECREASED VISION.PIV NOT WORKING - 20 G SL REMOVED. PRESSURE DRESSING TO SITE. ATTEMPTED IV START X2. UNABLE TO GET PIV BUT ANOTHER STAFF CALLED.TO TRY. TO RETURN FROM VISIT HOME. NPO AFTER MID NIGHT FOR CYSTO- CALL LIGHT WITHIN REACH.BED IN LOW POSITION.
[2020-04-28] MEDS: LATANOPROST(OPTH) 2.5 ML BTL OU SCH (21:00)
[2020-04-28] MEDS: PRAVASTATIN 20 MG TAB PO SCH (22:52)
[2020-04-29] VITALS: BP 126/63
[2020-04-29] MEDS: SODIUM CHLORIDE 0.9% 1000ML 1,000 ML IV SCH (03:15)
[2020-04-29 04:00] VITALS: BP 119/51
[2020-04-29] MEDS: NIFEDIPINE CR 30 MG TAB PO SCH (06:00)
[2020-04-29] MEDS: CEFAZOLIN SOD 1 GM/NS 50ML 50 ML IV SCH ×2 (06:27→14:20)
--- NOTE | 2020-04-29 07:05 | NUR ---
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 continue IV zosyn. 6-2 check labs; control BP; Subconjunctival hemorrhage- control BP; give artificial tears. Leukocytosis resolving; ALEXA resolving; d/c planning; 6-3 check CBC; Hemturia improving; BP much better; d/c planning; 6-4 PReop eval with cardiology; cystoscopy pending; Demian Zelaya MD, PhD.
--- NOTE | 2020-04-29 07:15 | NUR ---
bedside shift report received pt in stable condition,updated on poc voiced understanding, or here to transport pt down to or for procedure. pt left in stable condition.
[2020-04-29] MEDS ORDERED: IOPAMIDOL 300MG/ML 50ML INFUS..BTL IV ONE (07:29)
[2020-04-29] MEDS ORDERED: B&O 60MG R/S 60 MG SUPP PR ONE (07:29)
[2020-04-29] MEDS: INSULIN REGULAR, HUMAN 100 UNIT/1 ML 3ML VIAL SQ SCH ×3 (07:30→16:30)
[2020-04-29] MEDS: FAMOTIDINE 20 MG TAB PO SCH ×2 (07:30→16:30)
[2020-04-29 08:17] VITALS: BP 136/63
[2020-04-29 08:24] VITALS: BP 136/63
[2020-04-29] MEDS ORDERED: FENTANYL CITRATE/PF 100MCG/2 ML INJ ONE (08:50)
[2020-04-29] MEDS: ARTIFICIAL TEARS (OPTH) 15 ML BTL OP SCH ×2 (09:00→15:00)
[2020-04-29] MEDS: TAMSULOSIN HCL 0.4 MG CAP PO SCH (12:08)
[2020-04-29 12:55] VITALS: BP 155/71
--- NOTE | 2020-04-29 13:30 | NUR ---
using an fish receiver educated pt and on how to irrigate lucia, voiced understanding, as well as, demonstrated irrigation of lucia back to nurse all questions and concerns answered. will continue to monitor
--- NOTE | 2020-04-29 14:10 | Progress Note ---
DATE: 04/29/2020 Cardiology Progress Note SUBJECTIVE: The patient denies chest pain or shortness of breath. He had cystoscopy performed by Urology this morning. OBJECTIVE: VITAL SIGNS: Temperature 98.4 degrees, pulse 83, respiratory rate 16, blood pressure 161/76, and oxygen saturation 95% on 5 L face mask. GENERAL: Awake, alert, elderly man, in no acute distress. LUNGS: Clear to auscultation bilaterally. No wheezes or crackles. CARDIOVASCULAR: Normal rate. Regular rhythm. No murmur. Normal S1, S2. ABDOMEN: Soft and nontender. EXTREMITIES: No edema, status post left BKA. CARDIAC MEDICATIONS: Nifedipine 60 mg p.o. daily. LABORATORY DATA: None today. TELEMETRY: Telemetry was personally reviewed and interpreted, revealing normal sinus rhythm. IMPRESSION: 1. Escherichia coli urinary tract infection. 2. Paroxysmal atrial fibrillation. 3. Hypertension. 4. Hyperlipidemia. 5. Diabetes mellitus. 6. Peripheral arterial disease. 7. Chronic diastolic heart failure with pseudonormal LV filling and preserved LV systolic function as of 2017. 8. Coronary atherosclerosis noted on CT of the abdomen and pelvis. RECOMMENDATIONS: The patient denies any cardiac complaints. Echocardiogram demonstrated normal LV systolic function. He has had cystoscopy performed with findings of benign prostatic hypertrophy. He will need TURP at a later point in time. Hold anti-platelet therapy and anticoagulation at this time given hematuria. Continue current cardiac medications otherwise. We will need to resume warfarin and aspirin once agreeable from the Urology standpoint. Monitor the patient on telemetry while admitted. Thank you for this consult. We will continue to follow. Bettye Contreras MD ABS/MODL /[id number]
--- NOTE | 2020-04-29 15:44 | Diagnostic Imaging Report ---
OR Fluoroscopy: IMPRESSION: Fluoroscopy service provided in the OR. Interpretation not requested. Signed by: Liban Kaur MD on 04/29/2020 3:41 PM
[2020-04-29 16:50] VITALS: BP 151/68
[2020-04-29] MEDS ORDERED: CEFUROXIME250 MG PO (17:02)
--- NOTE | 2020-04-29 18:00 | NUR ---
PT DC'D HOME WITH MARKUS,USING A SNUBBER PT AND INSTRUCTED ON CHANGE OF LEG BAG TO BEDSIDE BAG, VOICED UNDERSTANDING, AND DEMONSTRATED BACK.
[2020-04-29] MEDS ORDERED: SEVOFLURANE INHAL SOLN 250 ML PEN BTL ONE (21:29)
[2020-04-29] MEDS ORDERED: LIDOCAINE HCL 2% LOCAL INJ 5 ML SDV VIAL INJ ONE (21:29)
[2020-04-29] MEDS ORDERED: ETOMIDATE 2 MG/ML 10 ML INJ IV ONE (21:29)
[2020-04-29] MEDS ORDERED: ONDANSETRON HCL INJ 2MG/ML 2ML 2 MG/ML VIAL ONE (21:29)
--- NOTE | 2020-05-02 00:31 | Operative Report ---
DATE OF PROCEDURE: 04/29/2020 SURGEON: Christian Yates MD PREOPERATIVE DIAGNOSES: 1. Hematuria. 2. Urinary tract infection. 3. Urinary retention. POSTOPERATIVE DIAGNOSES: 1. Hematuria. 2. Urinary tract infection. 3. Urinary retention. OPERATIONS PERFORMED: 1. Cystourethroscopy with bilateral ureteral catheterization and retrograde ureteropyelography. 2. Interpretation of retrograde ureteropyelography. 3. Supervision of fluoroscopy, no radiologist present. 4. Complicated urethral catheterization. ANESTHESIA: General. COMPLICATIONS: None. CLINICAL SUMMARY: Humphrey Jeong is an 85-year-old man with the above preoperative diagnoses. He was brought for the above procedures. DESCRIPTION OF PROCEDURE: Informed consent was verified, Humphrey Jeong was properly identified and taken to the operating room, placed on the cystoscopy table in supine position. Anesthesia was uneventfully begun. The patient was then carefully and gently repositioned in dorsal lithotomy position with all pressure points well padded. His genitalia were prepared and draped in usual sterile fashion. The cystoscope sheath with a visual obturator in place it was atraumatically inserted in the patient's urethra, it was guided unremarkable urethra, through normal sphincteric region, through the patient's large BPH and obstructing prostate bed. We entered the patient's bladder. Panendoscopy revealed a severely trabeculated bladder with small diverticula and cellules. There were no suspicious lesions. There were no tumors. An 8-Luxembourger catheter was used to cannulate each ureter and retrograde ureteral pyelography was performed. Interpretation of retrograde ureteropyelography contrast was instilled in retrograde fashion bilaterally. There was dramatic J hooking noted bilaterally, but there were no filling defects. No suspicious lesions and no stones. Unobstructed drainage was observed bilaterally fluoroscopically. The careful panendoscopy of the bladder again was performed, revealing hemorrhagic cystitis throughout the bladder. The cystoscope was withdrawn. Alaniz catheter was then place. It was irrigated to and fro to ensure it worked properly. The belladonna opium suppository was placed revealing a 40 g prostate that was smooth, nonfluctuant without any nodules. The patient was then uneventfully reversed from anesthesia and taken to recovery room in stable condition. There were no complications of the procedure, he tolerated the procedure well. Plans will be to follow the patient up in the office and perform a urodynamic study. Should the patient have adequate bladder function, we will then plan on scheduling him for a transurethral resection of the prostate. The patient not has adequate bladder functions. We will then plan a retirement bladder drainage management with suprapubic cystostomy. Christian MD LENA Yates/TORRIEL /[id number] cc: Raudel Murphy MD
== END 2020-04-29 18:41 | disposition home or self-care (01) | DRG 871 ==
LOC: ER 14:57 → ERHOLD 19:29 → MED/SURG 22:51
PROVIDERS: ADMIT Internal Medicine; ATTEND Internal Medicine
PROC: BT141ZZ Fluoroscopy of Kidneys, Ureters and Bladder using Low Osmolar Contrast (ICD-10-PCS; 2020-04-29)
PROC: 0T7D8ZZ Dilation of Urethra, Via Natural or Artificial Opening Endoscopic (ICD-10-PCS; 2020-04-29)
PROC: 0T788ZZ Dilation of Bilateral Ureters, Via Natural or Artificial Opening Endoscopic (ICD-10-PCS; principal; 2020-04-29 14:30)
DX: A41.9 Sepsis, unspecified organism (principal); I50.33 Acute on chronic diastolic (congestive) heart failure; N39.0 Urinary tract infection, site not specified; N17.9 Acute kidney failure, unspecified; N18.3 Chronic kidney disease, stage 3 (moderate); R33.9 Retention of urine, unspecified; E78.5 Hyperlipidemia, unspecified; I11.0 Hypertensive heart disease with heart failure; I73.9 Peripheral vascular disease, unspecified; I25.10 Atherosclerotic heart disease of native coronary artery without angina pectoris; I48.0 Paroxysmal atrial fibrillation; Z79.01 Long term (current) use of anticoagulants; B96.20 Unspecified Escherichia coli [E. coli] as the cause of diseases classified elsewhere; N40.1 Benign prostatic hyperplasia with lower urinary tract symptoms; R33.8 Other retention of urine; E11.51 Type 2 diabetes mellitus with diabetic peripheral angiopathy without gangrene; Z03.818 Encounter for observation for suspected exposure to other biological agents ruled out
CPT/HCPCS: 36415; 51700; 71045; 74177; 74420; 76705; 80048; 80053; 80061; 81001; 82550; 82553; 82948; 83036; 83605; 84484; 85025; 87040; 87086; 87186; 87635; 93005; 93306; 96372; 97139; 99284; C1758; J0690; J1644; J1817; J2001; J2405; J2543; J3010; J3370; J7030; Q9967

== ENCOUNTER 2021-05-31 21:09 | Inpatient (IN) | payer MEDICARE, OTHER ==
[~2021-05-31] VITALS: Ht 162.6 cm; Wt 61.8 kg
[~2021-05-31 21:09] MED LIST changes: +CEFUROXIME250 MG PO; +FAMOTIDINE20 MG PO; +LISINOPRIL2.5 MG PO; +NOVOLIN N100 UNIT/1 SQ; +PIOGLITAZONE HC45 MG PO; +WARFARIN SODIUM3 MG PO
[2021-05-31 21:52] LABS: BASOPHILS # (AUTO) 0.1 (0.0-0.1); BASOPHILS % 1.1 % (0.0-1.0); EOSINOPHILS # (AUTO) 0.1 (0.0-0.4); EOSINOPHILS % 1.5 % (0.0-6.0); HEMATOCRIT 41.8 % (38.2-49.6); HEMOGLOBIN 13.5 g/dL (14.0-18.0); LYMPHOCYTES # (AUTO) 1.2 (1.0-3.2); LYMPHOCYTES % 24.5 % (18.0-39.1); MEAN CORPUSCULAR HEMOGLOBIN 30.8 pg (28-32); MEAN CORPUSCULAR HGB CONC 32.3 g/dL (31-35); MEAN CORPUSCULAR VOLUME 95.2 fL (81-99); MONOCYTES # (AUTO) 0.5 (0.2-0.8); MONOCYTES % 10.2 % (4.4-11.3); NEUTROPHILS # (AUTO) 2.9 (2.1-6.9); NEUTROPHILS % 62.5 % (38.7-80.0); PLATELET COUNT 225 x10e3/uL (140-360); RED BLOOD COUNT 4.39 x10e6/uL (4.3-5.7); RED CELL DISTRIBUTION WIDTH 13.7 % (11.7-14.4)
[2021-05-31 22:08] LABS: ALBUMIN 3.9 g/dL (3.5-5.0); ALBUMIN/GLOBULIN RATIO 1.1 (0.8-2.0); ANION GAP 14.3 mmol/L (8-16); CALCIUM 9.4 mg/dL (8.4-10.2); CREATININE, SERUM 1.42 mg/dL (0.72-1.25); POTASSIUM 4.3 mmol/L (3.5-5.1)
[2021-05-31] MEDS ORDERED: Vancomycin IV 1 GM in SODIUM CHLORIDE 0.9% 250ML 250 ML IV STA (22:41)
[2021-05-31] MEDS ORDERED: CEFEPIME 1 GM in SODIUM CHLORIDE 0.9% 50ML 50 ML IV STA (22:41)
[2021-06-01] VITALS (7 sets, daily range): BP systolic 127–157; BP diastolic 64–92
[2021-06-01] MEDS ORDERED: ONDANSETRON HCL INJ 2MG/ML 2ML 2 MG/ML VIAL IV PRN (01:15)
[2021-06-01] MEDS ORDERED: SIMETHICONE 80 MG CHEW PO PRN (01:15)
[2021-06-01] MEDS ORDERED: BENZONATATE 100 MG CAP PO PRN (01:15)
[2021-06-01] MEDS ORDERED: DEXTROSE 50% SYRINGE 50 ML IV PRN ×2 (01:15→11:00)
[2021-06-01] MEDS ORDERED: LIDOCAINE 4% PATCH TP PRN (01:15)
[2021-06-01] MEDS ORDERED: HYDRALAZINE HCL 20 MG/ML VIAL IV PRN (01:15)
[2021-06-01] MEDS ORDERED: DIPHENHYDRAMINE HCL 25 MG CAP PO PRN (01:15)
[2021-06-01] MEDS ORDERED: ALBUTEROL/IPRATROPIUM 3 ML NEB NEB PRN (01:15)
[2021-06-01] MEDS ORDERED: SODIUM CHLORIDE 0.9% 250ML 250 ML ONE (04:44)
[2021-06-01] MEDS: CEFEPIME 1 GM in SODIUM CHLORIDE 0.9% 50ML 50 ML IV SCH ×3 (05:27→22:00)
[2021-06-01 06:31] LABS: BASOPHILS % 0.8 % (0.0-1.0); EOSINOPHILS # (AUTO) 0.1 (0.0-0.4); EOSINOPHILS % 2.3 % (0.0-6.0); HEMATOCRIT 36.1 % (38.2-49.6); LYMPHOCYTES # (AUTO) 1.3 (1.0-3.2); LYMPHOCYTES % 27.4 % (18.0-39.1); MEAN CORPUSCULAR HEMOGLOBIN 31.3 pg (28-32); MEAN CORPUSCULAR HGB CONC 33.2 g/dL (31-35); MONOCYTES # (AUTO) 0.6 (0.2-0.8); NEUTROPHILS # (AUTO) 2.7 (2.1-6.9); NEUTROPHILS % 57.3 % (38.7-80.0); PLATELET COUNT 191 x10e3/uL (140-360); RED BLOOD COUNT 3.84 x10e6/uL (4.3-5.7); RED CELL DISTRIBUTION WIDTH 13.5 % (11.7-14.4)
[2021-06-01] MEDS ORDERED: FINASTERIDE5 MG PO (06:44)
[2021-06-01] MEDS ORDERED: NOVOLIN N100 UNIT/1 SQ (06:46)
[2021-06-01 07:05] LABS: ALBUMIN 3.2 g/dL (3.5-5.0); ALBUMIN/GLOBULIN RATIO 1.1 (0.8-2.0); CALCIUM 8.5 mg/dL (8.4-10.2); CREATININE, SERUM 1.21 mg/dL (0.72-1.25)
[2021-06-01] MEDS: PANTOPRAZOLE SOD 40 MG TABEC PO SCH (07:30)
[2021-06-01] MEDS ORDERED: VANCOMYCIN 1GM/NS 250 ML 250 ML IV SCH (09:00)
[2021-06-01] MEDS ORDERED: NON-FORMULARY MEDICATION (Pravastatin Sodium 40 MG) PO SCH (11:00)
[2021-06-01] MEDS ORDERED: Vancomycin IV 1 GM in SODIUM CHLORIDE 0.9% 250ML 250 ML IV SCH (11:00)
[2021-06-01] MEDS: FAMOTIDINE 20 MG TAB PO SCH (16:12)
[2021-06-01] MEDS: WARFARIN SOD 3 MG TAB PO SCH (16:22)
[2021-06-01] MEDS: Vancomycin IV 1 GM in SODIUM CHLORIDE 0.9% 250ML 250 ML IV SCH (20:00)
[2021-06-01] MEDS: NPH, HUMAN INSULIN ISOPHANE 100 UNIT/1 ML 3ML VIAL SQ SCH (20:19)
[2021-06-01] MEDS: SIMVASTATIN 20 MG TAB PO SCH (20:19)
[2021-06-02] VITALS (8 sets, daily range): BP systolic 122–158; BP diastolic 56–80
[2021-06-02 04:48] LABS: BASOPHILS # (AUTO) 0.1 (0.0-0.1); BASOPHILS % 1.5 % (0.0-1.0); EOSINOPHILS # (AUTO) 0.1 (0.0-0.4); EOSINOPHILS % 1.9 % (0.0-6.0); HEMATOCRIT 37.9 % (38.2-49.6); HEMOGLOBIN 12.6 g/dL (14.0-18.0); LYMPHOCYTES # (AUTO) 1.3 (1.0-3.2); LYMPHOCYTES % 27.5 % (18.0-39.1); MEAN CORPUSCULAR HGB CONC 33.2 g/dL (31-35); MEAN CORPUSCULAR VOLUME 93.1 fL (81-99); MONOCYTES # (AUTO) 0.5 (0.2-0.8); MONOCYTES % 11.4 % (4.4-11.3); NEUTROPHILS # (AUTO) 2.7 (2.1-6.9); NEUTROPHILS % 57.5 % (38.7-80.0); PLATELET COUNT 206 x10e3/uL (140-360); RED BLOOD COUNT 4.07 x10e6/uL (4.3-5.7); RED CELL DISTRIBUTION WIDTH 13.3 % (11.7-14.4)
[2021-06-02] MEDS: CEFEPIME 1 GM in SODIUM CHLORIDE 0.9% 50ML 50 ML IV SCH ×3 (05:10→22:00)
[2021-06-02 05:11] LABS: ANION GAP 14.9 mmol/L (8-16); CALCIUM 8.5 mg/dL (8.4-10.2); CHOL/HDL RATIO 4.8 (3.9-4.7); CREATININE, SERUM 1.32 mg/dL (0.72-1.25); PHOSPHORUS 2.6 MG/DL (2.3-4.7); POTASSIUM 3.9 mmol/L (3.5-5.1)
[2021-06-02 05:36] LABS: THYROID STIMULATING HORMONE 4.343 uIU/mL (0.350-4.940)
[2021-06-02] MEDS: PANTOPRAZOLE SOD 40 MG TABEC PO SCH (07:30)
[2021-06-02] MEDS: TAMSULOSIN HCL 0.4 MG CAP PO SCH (08:36)
[2021-06-02] MEDS: FINASTERIDE 5 MG TAB PO SCH (08:36)
[2021-06-02] MEDS: FAMOTIDINE 20 MG TAB PO SCH ×2 (08:36→17:15)
[2021-06-02] MEDS: NPH, HUMAN INSULIN ISOPHANE 100 UNIT/1 ML 3ML VIAL SQ SCH ×2 (09:00→21:00)
[2021-06-02] MEDS ORDERED: WARFARIN SOD 3 MG TAB PO SCH (09:00)
[2021-06-02] MEDS: WARFARIN SOD 3 MG TAB PO SCH (17:00)
[2021-06-02] MEDS: Vancomycin IV 1 GM in SODIUM CHLORIDE 0.9% 250ML 250 ML IV SCH (21:00)
[2021-06-02] MEDS: SIMVASTATIN 20 MG TAB PO SCH (21:16)
[2021-06-02] MEDS: MELATONIN 5 MG TABLET PO PRN (21:17)
[2021-06-03] VITALS (8 sets, daily range): BP systolic 114–157; BP diastolic 55–82
[2021-06-03] MEDS: DOCUSATE SODIUM 100 MG CAP PO PRN (02:38)
[2021-06-03] MEDS: HYDROCODONE/APAP 5MG-325MG TAB PO PRN ×2 (02:38→08:53)
[2021-06-03] MEDS: CEFEPIME 1 GM in SODIUM CHLORIDE 0.9% 50ML 50 ML IV SCH ×3 (05:40→22:30)
[2021-06-03 06:24] LABS: INR 2.64; PROTHROMBIN TIME 29.5 seconds (11.9-14.5)
[2021-06-03] MEDS: PANTOPRAZOLE SOD 40 MG TABEC PO SCH (08:42)
[2021-06-03] MEDS: FAMOTIDINE 20 MG TAB PO SCH ×2 (08:43→17:00)
[2021-06-03] MEDS: FINASTERIDE 5 MG TAB PO SCH (08:43)
[2021-06-03] MEDS: TAMSULOSIN HCL 0.4 MG CAP PO SCH (08:43)
[2021-06-03] MEDS: NPH, HUMAN INSULIN ISOPHANE 100 UNIT/1 ML 3ML VIAL SQ SCH ×2 (09:00→21:00)
[2021-06-03] MEDS: TRAMADOL HCL 50 MG TAB PO PRN ×2 (15:41→21:49)
[2021-06-03] MEDS: WARFARIN SOD 3 MG TAB PO SCH (17:00)
[2021-06-03] MEDS ORDERED: DEXTROSE 50% SYRINGE 50 ML IV PRN (18:15)
[2021-06-03 20:07] LABS: INR 2.51; PROTHROMBIN TIME 28.3 seconds (11.9-14.5)
[2021-06-03] MEDS: LATANOPROST(OPTH) 2.5 ML BTL OU SCH (20:32)
[2021-06-03] MEDS: MELATONIN 5 MG TABLET PO PRN (20:33)
[2021-06-03] MEDS: SIMVASTATIN 20 MG TAB PO SCH (20:33)
[2021-06-03] MEDS: Vancomycin IV 1 GM in SODIUM CHLORIDE 0.9% 250ML 250 ML IV SCH (20:52)
[2021-06-03] MEDS: INSULIN LISPRO 100 UNIT/1 ML 3ML VIAL SQ SCH (21:00)
[2021-06-04] VITALS (8 sets, daily range): BP systolic 107–158; BP diastolic 54–82
[2021-06-04] MEDS: CEFEPIME 1 GM in SODIUM CHLORIDE 0.9% 50ML 50 ML IV SCH ×3 (06:03→22:00)
[2021-06-04] MEDS: TRAMADOL HCL 50 MG TAB PO PRN ×2 (06:04→18:13)
[2021-06-04 06:44] LABS: BASOPHILS % 0.6 % (0.0-1.0); EOSINOPHILS # (AUTO) 0.1 (0.0-0.4); EOSINOPHILS % 1.7 % (0.0-6.0); HEMATOCRIT 36.9 % (38.2-49.6); HEMOGLOBIN 12.2 g/dL (14.0-18.0); LYMPHOCYTES # (AUTO) 1.1 (1.0-3.2); LYMPHOCYTES % 17.1 % (18.0-39.1); MEAN CORPUSCULAR HEMOGLOBIN 30.8 pg (28-32); MEAN CORPUSCULAR HGB CONC 33.1 g/dL (31-35); MEAN CORPUSCULAR VOLUME 93.2 fL (81-99); MONOCYTES # (AUTO) 0.7 (0.2-0.8); MONOCYTES % 9.8 % (4.4-11.3); NEUTROPHILS # (AUTO) 4.7 (2.1-6.9); NEUTROPHILS % 70.5 % (38.7-80.0); PLATELET COUNT 210 x10e3/uL (140-360); RED BLOOD COUNT 3.96 x10e6/uL (4.3-5.7); RED CELL DISTRIBUTION WIDTH 13.3 % (11.7-14.4)
[2021-06-04 07:03] LABS: ANION GAP 13.8 mmol/L (8-16); CALCIUM 8.1 mg/dL (8.4-10.2); CREATININE, SERUM 1.02 mg/dL (0.72-1.25); POTASSIUM 3.8 mmol/L (3.5-5.1)
[2021-06-04] MEDS: INSULIN LISPRO 100 UNIT/1 ML 3ML VIAL SQ SCH ×4 (07:30→21:00)
[2021-06-04] MEDS: PANTOPRAZOLE SOD 40 MG TABEC PO SCH (08:14)
[2021-06-04] MEDS: TAMSULOSIN HCL 0.4 MG CAP PO SCH (08:14)
[2021-06-04] MEDS: FINASTERIDE 5 MG TAB PO SCH (08:14)
[2021-06-04] MEDS: FAMOTIDINE 20 MG TAB PO SCH ×2 (08:14→17:31)
[2021-06-04] MEDS: NPH, HUMAN INSULIN ISOPHANE 100 UNIT/1 ML 3ML VIAL SQ SCH ×2 (08:15→21:00)
[2021-06-04] MEDS ORDERED: CALCIUM GLUCONATE 10% INJ 9.3 MEQ in SODIUM CHLORIDE 0.9% 100 ML 100 ML IV ONE (13:30)
[2021-06-04] MEDS: DOCUSATE SODIUM 100 MG CAP PO PRN (14:05)
[2021-06-04] MEDS: WARFARIN SOD 3 MG TAB PO SCH (17:31)
[2021-06-04 18:35] LABS: CLARITY,URINE SL CLOUDY (CLEAR); COLOR,URINE YELLOW (YELLOW); LEUKOCYTE ESTERASE ,URINE NEGATIVE (NEGATIVE); NITRITE,URINE NEGATIVE (NEGATIVE); PROTEIN,URINE DIPSTICK TRACE (NEGATIVE)
[2021-06-04 18:36] LABS: KETONES,URINE NEGATIVE (NEGATIVE); URINE UROBILINOGEN 0.2 mg/dL (0.2 - 1)
[2021-06-04 18:54] LABS: BACTERIA,URINE FEW /HPF; EPITHELIAL CELLS,URINE FEW /LPF; WBC,URINE (MAN) 0-5 /HPF (0-5)
[2021-06-04 18:55] LABS: MUCUS,URINE FEW (RARE)
[2021-06-04] MEDS: Vancomycin IV 1 GM in SODIUM CHLORIDE 0.9% 250ML 250 ML IV SCH (20:27)
[2021-06-04] MEDS: LATANOPROST(OPTH) 2.5 ML BTL OU SCH (20:27)
[2021-06-04] MEDS: SIMVASTATIN 20 MG TAB PO SCH (20:28)
[2021-06-05] VITALS (13 sets, daily range): BP systolic 120–174; BP diastolic 52–78
[2021-06-05 05:44] LABS: BASOPHILS # (AUTO) 0.1 (0.0-0.1); EOSINOPHILS # (AUTO) 0.2 (0.0-0.4); EOSINOPHILS % 2.9 % (0.0-6.0); HEMATOCRIT 36.5 % (38.2-49.6); HEMOGLOBIN 11.9 g/dL (14.0-18.0); LYMPHOCYTES # (AUTO) 1.2 (1.0-3.2); LYMPHOCYTES % 16.8 % (18.0-39.1); MEAN CORPUSCULAR HEMOGLOBIN 30.6 pg (28-32); MEAN CORPUSCULAR HGB CONC 32.6 g/dL (31-35); MEAN CORPUSCULAR VOLUME 93.8 fL (81-99); MONOCYTES # (AUTO) 0.7 (0.2-0.8); MONOCYTES % 10.7 % (4.4-11.3); NEUTROPHILS # (AUTO) 4.7 (2.1-6.9); NEUTROPHILS % 68.3 % (38.7-80.0); PLATELET COUNT 203 x10e3/uL (140-360); RED BLOOD COUNT 3.89 x10e6/uL (4.3-5.7); RED CELL DISTRIBUTION WIDTH 13.2 % (11.7-14.4)
[2021-06-05 06:00] LABS: INR 1.74; PROTHROMBIN TIME 21.3 seconds (11.9-14.5)
[2021-06-05 06:17] LABS: ANION GAP 10.6 mmol/L (8-16); CALCIUM 8.3 mg/dL (8.4-10.2); CREATININE, SERUM 1.09 mg/dL (0.72-1.25); POTASSIUM 3.6 mmol/L (3.5-5.1)
[2021-06-05] MEDS: CEFEPIME 1 GM in SODIUM CHLORIDE 0.9% 50ML 50 ML IV SCH ×3 (06:21→23:52)
[2021-06-05] MEDS: PANTOPRAZOLE SOD 40 MG TABEC PO SCH (07:30)
[2021-06-05] MEDS: INSULIN LISPRO 100 UNIT/1 ML 3ML VIAL SQ SCH ×4 (07:30→21:00)
[2021-06-05] MEDS: FAMOTIDINE 20 MG TAB PO SCH ×2 (07:57→17:34)
[2021-06-05] MEDS: POLYETHYLENE GLYCOL 3350 17 GM PACK PO SCH ×2 (07:57→17:34)
[2021-06-05] MEDS: NPH, HUMAN INSULIN ISOPHANE 100 UNIT/1 ML 3ML VIAL SQ SCH ×2 (09:00→21:00)
[2021-06-05] MEDS ORDERED: DIPHENHYDRAMINE HCL INJ 50 MG/ML VIAL IV ONE (13:25)
[2021-06-05] MEDS ORDERED: SODIUM CHLORIDE 0.9% 250ML 250 ML ONE (13:36)
[2021-06-05] MEDS ORDERED: LIDOCAINE HCL 2% LOCAL 20 ML VIAL ONE (14:56)
[2021-06-05] MEDS ORDERED: FENTANYL CITRATE/PF 100MCG/2 ML INJ ONE (14:56)
[2021-06-05] MEDS ORDERED: MIDAZOLAM HCL 2 MG/2 ML VIAL ONE (14:56)
[2021-06-05] MEDS ORDERED: HEPARIN SOD/SOD CHLORIDE 2,000 ML ONE (14:57)
[2021-06-05] MEDS ORDERED: SODIUM CHLORIDE 0.9% 1000ML 1,000 ML ONE ×2 (14:57→15:46)
[2021-06-05] MEDS ORDERED: IOPAMIDOL 300MG/ML 100 ML INFUS..BTL IV ONE (14:57)
[2021-06-05] MEDS ORDERED: VERAPAMIL HCL 2.5 MG/ML 2 ML VIAL ONE (15:46)
[2021-06-05] MEDS ORDERED: ASPIRIN 325 MG TAB ONE (16:17)
[2021-06-05] MEDS ORDERED: CLOPIDOGREL BISULFATE 75 MG TAB ONE (16:17)
[2021-06-05] MEDS: FINASTERIDE 5 MG TAB PO SCH (17:25)
[2021-06-05] MEDS: TAMSULOSIN HCL 0.4 MG CAP PO SCH (17:25)
[2021-06-05] MEDS: Vancomycin IV 1 GM in SODIUM CHLORIDE 0.9% 250ML 250 ML IV SCH (21:00)
[2021-06-05] MEDS: LATANOPROST(OPTH) 2.5 ML BTL OU SCH (21:08)
[2021-06-05] MEDS: SIMVASTATIN 20 MG TAB PO SCH (21:08)
[2021-06-05] MEDS: TRAMADOL HCL 50 MG TAB PO PRN (21:26)
[2021-06-06] VITALS (8 sets, daily range): BP systolic 81–137; BP diastolic 42–55
[2021-06-06 06:09] LABS: BASOPHILS % 0.6 % (0.0-1.0); EOSINOPHILS # (AUTO) 0.1 (0.0-0.4); EOSINOPHILS % 0.9 % (0.0-6.0); HEMATOCRIT 30.1 % (38.2-49.6); HEMOGLOBIN 9.9 g/dL (14.0-18.0); LYMPHOCYTES # (AUTO) 1.2 (1.0-3.2); LYMPHOCYTES % 18.5 % (18.0-39.1); MEAN CORPUSCULAR HEMOGLOBIN 31.1 pg (28-32); MEAN CORPUSCULAR HGB CONC 32.9 g/dL (31-35); MEAN CORPUSCULAR VOLUME 94.7 fL (81-99); MONOCYTES # (AUTO) 0.8 (0.2-0.8); MONOCYTES % 12.9 % (4.4-11.3); NEUTROPHILS # (AUTO) 4.3 (2.1-6.9); NEUTROPHILS % 66.6 % (38.7-80.0); PLATELET COUNT 187 x10e3/uL (140-360); RED BLOOD COUNT 3.18 x10e6/uL (4.3-5.7); RED CELL DISTRIBUTION WIDTH 13.4 % (11.7-14.4)
[2021-06-06] MEDS ORDERED: DEXAMETHASONE SOD PHOS INJ 4 MG/ML VIAL ONE (06:38)
[2021-06-06] MEDS ORDERED: BUPIVACAINE HCL 0.5% INJ 30 ML VIAL INJ ONE (06:38)
[2021-06-06 06:39] LABS: INR 1.74; PROTHROMBIN TIME 21.3 seconds (11.9-14.5)
[2021-06-06 06:51] LABS: ANION GAP 9.3 mmol/L (8-16); CALCIUM 8.1 mg/dL (8.4-10.2); CREATININE, SERUM 1.59 mg/dL (0.72-1.25); POTASSIUM 4.3 mmol/L (3.5-5.1)
[2021-06-06] MEDS: INSULIN LISPRO 100 UNIT/1 ML 3ML VIAL SQ SCH ×4 (07:30→21:00)
[2021-06-06] MEDS: NPH, HUMAN INSULIN ISOPHANE 100 UNIT/1 ML 3ML VIAL SQ SCH ×2 (09:00→21:00)
[2021-06-06] MEDS: CLOPIDOGREL BISULFATE 75 MG TAB PO SCH (09:00)
[2021-06-06] MEDS: PANTOPRAZOLE SOD 40 MG TABEC PO SCH (09:56)
[2021-06-06] MEDS: FAMOTIDINE 20 MG TAB PO SCH ×2 (09:56→15:55)
[2021-06-06] MEDS: FINASTERIDE 5 MG TAB PO SCH (09:56)
[2021-06-06] MEDS: POLYETHYLENE GLYCOL 3350 17 GM PACK PO SCH ×2 (09:56→15:55)
[2021-06-06] MEDS: ASPIRIN 81 MG CHEW TAB PO SCH (09:56)
[2021-06-06] MEDS: TAMSULOSIN HCL 0.4 MG CAP PO SCH (09:56)
[2021-06-06] MEDS ORDERED: POVIDONE IODINE 0.05% 0.05 % ML PO ONE (11:44)
[2021-06-06] MEDS ORDERED: PROPOFOL IV EMULSION 10 MG/ML 20 ML VIAL ONE (11:44)
[2021-06-06] MEDS: SODIUM CHLORIDE 0.9% 1000ML 1,000 ML IV SCH (14:51)
[2021-06-06] MEDS: ACETAMINOPHEN 325 MG TAB PO PRN (17:35)
[2021-06-06] MEDS: LATANOPROST(OPTH) 2.5 ML BTL OU SCH (20:36)
[2021-06-06] MEDS: TRAMADOL HCL 50 MG TAB PO PRN (20:36)
[2021-06-06] MEDS: ATORVASTATIN 20 MG TAB PO SCH (20:36)
[2021-06-07] VITALS (8 sets, daily range): BP systolic 117–147; BP diastolic 41–61
[2021-06-07] MEDS: SODIUM CHLORIDE 0.9% 1000ML 1,000 ML IV SCH ×2 (04:19→15:56)
[2021-06-07 04:46] LABS: BASOPHILS % 0.5 % (0.0-1.0); EOSINOPHILS # (AUTO) 0.1 (0.0-0.4); EOSINOPHILS % 1.2 % (0.0-6.0); HEMATOCRIT 27.6 % (38.2-49.6); LYMPHOCYTES % 12.3 % (18.0-39.1); MEAN CORPUSCULAR HEMOGLOBIN 31.3 pg (28-32); MEAN CORPUSCULAR HGB CONC 32.6 g/dL (31-35); MEAN CORPUSCULAR VOLUME 95.8 fL (81-99); MONOCYTES # (AUTO) 0.9 (0.2-0.8); MONOCYTES % 10.5 % (4.4-11.3); NEUTROPHILS # (AUTO) 6.3 (2.1-6.9); PLATELET COUNT 197 x10e3/uL (140-360); RED BLOOD COUNT 2.88 x10e6/uL (4.3-5.7); RED CELL DISTRIBUTION WIDTH 13.6 % (11.7-14.4)
[2021-06-07 05:10] LABS: CALCIUM 7.9 mg/dL (8.4-10.2); CREATININE, SERUM 1.1 mg/dL (0.72-1.25)
[2021-06-07] MEDS: INSULIN LISPRO 100 UNIT/1 ML 3ML VIAL SQ SCH ×4 (07:30→21:00)
[2021-06-07] MEDS: PANTOPRAZOLE SOD 40 MG TABEC PO SCH (08:38)
[2021-06-07] MEDS: FAMOTIDINE 20 MG TAB PO SCH ×2 (08:38→17:24)
[2021-06-07] MEDS: TAMSULOSIN HCL 0.4 MG CAP PO SCH (08:38)
[2021-06-07] MEDS: CLOPIDOGREL BISULFATE 75 MG TAB PO SCH (08:38)
[2021-06-07] MEDS: POLYETHYLENE GLYCOL 3350 17 GM PACK PO SCH ×2 (08:38→17:24)
[2021-06-07] MEDS: FINASTERIDE 5 MG TAB PO SCH (08:38)
[2021-06-07] MEDS: ASPIRIN 81 MG CHEW TAB PO SCH (08:38)
[2021-06-07] MEDS: NPH, HUMAN INSULIN ISOPHANE 100 UNIT/1 ML 3ML VIAL SQ SCH ×2 (08:39→21:00)
[2021-06-07 15:04] LABS: INR 1.25; PROTHROMBIN TIME 16.4 seconds (11.9-14.5)
[2021-06-07] MEDS: CEFTRIAXONE 2 GM in SODIUM CHLORIDE 0.9% 100 ML IV SCH (17:32)
[2021-06-07] MEDS: WARFARIN SOD 3 MG TAB PO SCH (17:53)
[2021-06-07] MEDS: ATORVASTATIN 20 MG TAB PO SCH (21:00)
[2021-06-07] MEDS: LATANOPROST(OPTH) 2.5 ML BTL OU SCH (21:00)
[2021-06-07] MEDS: TRAMADOL HCL 50 MG TAB PO PRN (21:10)
[2021-06-08] VITALS (8 sets, daily range): BP systolic 116–148; BP diastolic 42–67
[2021-06-08] MEDS: SODIUM CHLORIDE 0.9% 1000ML 1,000 ML IV SCH ×2 (04:27→19:18)
[2021-06-08] MEDS: ACETAMINOPHEN 325 MG TAB PO PRN ×2 (05:15→23:40)
[2021-06-08 06:05] LABS: BASOPHILS % 0.6 % (0.0-1.0); EOSINOPHILS # (AUTO) 0.2 (0.0-0.4); EOSINOPHILS % 2.7 % (0.0-6.0); HEMATOCRIT 26.2 % (38.2-49.6); HEMOGLOBIN 8.4 g/dL (14.0-18.0); LYMPHOCYTES # (AUTO) 1.3 (1.0-3.2); LYMPHOCYTES % 18.9 % (18.0-39.1); MEAN CORPUSCULAR HEMOGLOBIN 30.7 pg (28-32); MEAN CORPUSCULAR HGB CONC 32.1 g/dL (31-35); MEAN CORPUSCULAR VOLUME 95.6 fL (81-99); MONOCYTES # (AUTO) 0.7 (0.2-0.8); MONOCYTES % 10.3 % (4.4-11.3); NEUTROPHILS # (AUTO) 4.4 (2.1-6.9); NEUTROPHILS % 66.6 % (38.7-80.0); PLATELET COUNT 217 x10e3/uL (140-360); RED BLOOD COUNT 2.74 x10e6/uL (4.3-5.7); RED CELL DISTRIBUTION WIDTH 13.7 % (11.7-14.4)
[2021-06-08 06:24] LABS: ANION GAP 7.9 mmol/L (8-16); CALCIUM 7.6 mg/dL (8.4-10.2); CREATININE, SERUM 0.91 mg/dL (0.72-1.25); POTASSIUM 3.9 mmol/L (3.5-5.1)
[2021-06-08] MEDS: INSULIN LISPRO 100 UNIT/1 ML 3ML VIAL SQ SCH ×4 (07:30→21:15)
[2021-06-08] MEDS: PANTOPRAZOLE SOD 40 MG TABEC PO SCH (08:05)
[2021-06-08] MEDS: POLYETHYLENE GLYCOL 3350 17 GM PACK PO SCH ×2 (09:00→17:00)
[2021-06-08] MEDS: NPH, HUMAN INSULIN ISOPHANE 100 UNIT/1 ML 3ML VIAL SQ SCH ×2 (09:00→21:15)
[2021-06-08] MEDS: CLOPIDOGREL BISULFATE 75 MG TAB PO SCH (09:36)
[2021-06-08] MEDS: FINASTERIDE 5 MG TAB PO SCH (09:36)
[2021-06-08] MEDS: FAMOTIDINE 20 MG TAB PO SCH ×2 (09:36→17:07)
[2021-06-08] MEDS: TAMSULOSIN HCL 0.4 MG CAP PO SCH (09:36)
[2021-06-08] MEDS: ASPIRIN 81 MG CHEW TAB PO SCH (09:36)
[2021-06-08] MEDS ORDERED: WARFARIN SOD 2 MG TAB PO ONE (14:00)
[2021-06-08] MEDS: WARFARIN SOD 3 MG TAB PO SCH (17:07)
[2021-06-08] MEDS: CEFTRIAXONE 2 GM in SODIUM CHLORIDE 0.9% 100 ML IV SCH (18:51)
[2021-06-08] MEDS: DONEPEZIL HCL 5 MG TAB PO SCH (21:07)
[2021-06-08] MEDS: ATORVASTATIN 20 MG TAB PO SCH (21:07)
[2021-06-08] MEDS: TRAMADOL HCL 50 MG TAB PO PRN (21:08)
[2021-06-08] MEDS: LATANOPROST(OPTH) 2.5 ML BTL OU SCH (21:23)
[2021-06-08] MEDS: MELATONIN 5 MG TABLET PO PRN (23:40)
[2021-06-09] VITALS (8 sets, daily range): BP systolic 105–154; BP diastolic 52–71
[2021-06-09 06:28] LABS: BASOPHILS # (AUTO) 0.1 (0.0-0.1); BASOPHILS % 0.9 % (0.0-1.0); EOSINOPHILS # (AUTO) 0.2 (0.0-0.4); EOSINOPHILS % 3.8 % (0.0-6.0); HEMATOCRIT 25.2 % (38.2-49.6); HEMOGLOBIN 8.3 g/dL (14.0-18.0); LYMPHOCYTES # (AUTO) 1.2 (1.0-3.2); LYMPHOCYTES % 20.6 % (18.0-39.1); MEAN CORPUSCULAR HEMOGLOBIN 31.1 pg (28-32); MEAN CORPUSCULAR HGB CONC 32.9 g/dL (31-35); MEAN CORPUSCULAR VOLUME 94.4 fL (81-99); MONOCYTES # (AUTO) 0.6 (0.2-0.8); MONOCYTES % 10.9 % (4.4-11.3); NEUTROPHILS # (AUTO) 3.5 (2.1-6.9); NEUTROPHILS % 63.3 % (38.7-80.0); PLATELET COUNT 202 x10e3/uL (140-360); RED BLOOD COUNT 2.67 x10e6/uL (4.3-5.7); RED CELL DISTRIBUTION WIDTH 13.5 % (11.7-14.4)
[2021-06-09 06:45] LABS: ANION GAP 8.9 mmol/L (8-16); CALCIUM 7.5 mg/dL (8.4-10.2); POTASSIUM 3.9 mmol/L (3.5-5.1)
[2021-06-09 06:46] LABS: INR 1.23; PROTHROMBIN TIME 16.2 seconds (11.9-14.5)
[2021-06-09] MEDS: INSULIN LISPRO 100 UNIT/1 ML 3ML VIAL SQ SCH ×4 (07:30→20:47)
[2021-06-09] MEDS: PANTOPRAZOLE SOD 40 MG TABEC PO SCH (08:59)
[2021-06-09] MEDS: ASPIRIN 81 MG CHEW TAB PO SCH (08:59)
[2021-06-09] MEDS: TAMSULOSIN HCL 0.4 MG CAP PO SCH (08:59)
[2021-06-09] MEDS: CLOPIDOGREL BISULFATE 75 MG TAB PO SCH (09:00)
[2021-06-09] MEDS: FAMOTIDINE 20 MG TAB PO SCH ×2 (09:00→16:44)
[2021-06-09] MEDS: FINASTERIDE 5 MG TAB PO SCH (09:00)
[2021-06-09] MEDS: POLYETHYLENE GLYCOL 3350 17 GM PACK PO SCH ×2 (09:00→16:44)
[2021-06-09] MEDS: NPH, HUMAN INSULIN ISOPHANE 100 UNIT/1 ML 3ML VIAL SQ SCH ×2 (09:00→20:47)
[2021-06-09] MEDS: SODIUM CHLORIDE 0.9% 1000ML 1,000 ML IV SCH (10:56)
[2021-06-09] MEDS: WARFARIN SOD 3 MG TAB PO SCH (16:40)
[2021-06-09] MEDS: CEFTRIAXONE 2 GM in SODIUM CHLORIDE 0.9% 100 ML IV SCH ×2 (16:45→17:31)
[2021-06-09] MEDS ORDERED: WARFARIN SOD 3 MG TAB PO NR (17:00)
[2021-06-09] MEDS: ATORVASTATIN 20 MG TAB PO SCH (21:00)
[2021-06-09] MEDS: DEXTROSE 5%/0.9% SOD CHL 1,000 ML IV SCH (21:04)
[2021-06-10] VITALS (7 sets, daily range): BP systolic 100–136; BP diastolic 40–55
[2021-06-10] MEDS: MELATONIN 5 MG TABLET PO PRN (00:41)
[2021-06-10] MEDS: LATANOPROST(OPTH) 2.5 ML BTL OU SCH ×2 (00:41→20:57)
[2021-06-10] MEDS: DONEPEZIL HCL 5 MG TAB PO SCH ×2 (00:41→20:57)
[2021-06-10] MEDS: ACETAMINOPHEN 325 MG TAB PO PRN (00:42)
[2021-06-10 06:42] LABS: BASOPHILS % 0.1 % (0.0-1.0); EOSINOPHILS # (AUTO) 0.1 (0.0-0.4); EOSINOPHILS % 0.7 % (0.0-6.0); HEMATOCRIT 23.4 % (38.2-49.6); HEMOGLOBIN 7.5 g/dL (14.0-18.0); LYMPHOCYTES # (AUTO) 0.8 (1.0-3.2); LYMPHOCYTES % 9.6 % (18.0-39.1); MEAN CORPUSCULAR HEMOGLOBIN 30.9 pg (28-32); MEAN CORPUSCULAR HGB CONC 32.1 g/dL (31-35); MEAN CORPUSCULAR VOLUME 96.3 fL (81-99); MONOCYTES # (AUTO) 0.6 (0.2-0.8); MONOCYTES % 7.3 % (4.4-11.3); NEUTROPHILS % 81.9 % (38.7-80.0); PLATELET COUNT 210 x10e3/uL (140-360); RED BLOOD COUNT 2.43 x10e6/uL (4.3-5.7); RED CELL DISTRIBUTION WIDTH 14.1 % (11.7-14.4)
[2021-06-10 06:52] LABS: INR 1.36; PROTHROMBIN TIME 17.5 seconds (11.9-14.5)
[2021-06-10 06:56] LABS: ANION GAP 9.8 mmol/L (8-16); CALCIUM 7.1 mg/dL (8.4-10.2); CREATININE, SERUM 1.2 mg/dL (0.72-1.25); POTASSIUM 3.8 mmol/L (3.5-5.1)
[2021-06-10] MEDS: INSULIN LISPRO 100 UNIT/1 ML 3ML VIAL SQ SCH ×4 (07:30→20:57)
[2021-06-10] MEDS: DEXTROSE 5%/0.9% SOD CHL 1,000 ML IV SCH ×3 (07:37→20:58)
[2021-06-10] MEDS: NPH, HUMAN INSULIN ISOPHANE 100 UNIT/1 ML 3ML VIAL SQ SCH ×2 (09:00→20:57)
[2021-06-10] MEDS: TAMSULOSIN HCL 0.4 MG CAP PO SCH (09:47)
[2021-06-10] MEDS: ASPIRIN 81 MG CHEW TAB PO SCH (09:47)
[2021-06-10] MEDS: FAMOTIDINE 20 MG TAB PO SCH ×2 (09:47→17:38)
[2021-06-10] MEDS: CLOPIDOGREL BISULFATE 75 MG TAB PO SCH (09:47)
[2021-06-10] MEDS: PANTOPRAZOLE SOD 40 MG TABEC PO SCH (09:47)
[2021-06-10] MEDS: FINASTERIDE 5 MG TAB PO SCH (09:47)
[2021-06-10] MEDS: CEFTRIAXONE 2 GM in SODIUM CHLORIDE 0.9% 100 ML IV SCH (17:38)
[2021-06-10] MEDS: WARFARIN SOD 3 MG TAB PO SCH (17:39)
[2021-06-10] MEDS ORDERED: WARFARIN SOD 3 MG TAB PO ONE (18:00)
[2021-06-10] MEDS: ATORVASTATIN 20 MG TAB PO SCH (20:57)
[2021-06-11] VITALS (8 sets, daily range): BP systolic 114–158; BP diastolic 44–66
[2021-06-11 06:06] LABS: BASOPHILS % 0.3 % (0.0-1.0); EOSINOPHILS # (AUTO) 0.2 (0.0-0.4); EOSINOPHILS % 2.7 % (0.0-6.0); HEMATOCRIT 23.2 % (38.2-49.6); HEMOGLOBIN 7.5 g/dL (14.0-18.0); LYMPHOCYTES # (AUTO) 1.1 (1.0-3.2); LYMPHOCYTES % 17.4 % (18.0-39.1); MEAN CORPUSCULAR HEMOGLOBIN 31.1 pg (28-32); MEAN CORPUSCULAR HGB CONC 32.3 g/dL (31-35); MEAN CORPUSCULAR VOLUME 96.3 fL (81-99); MONOCYTES # (AUTO) 0.5 (0.2-0.8); MONOCYTES % 8.6 % (4.4-11.3); NEUTROPHILS # (AUTO) 4.4 (2.1-6.9); NEUTROPHILS % 70.5 % (38.7-80.0); PLATELET COUNT 259 x10e3/uL (140-360); RED BLOOD COUNT 2.41 x10e6/uL (4.3-5.7); RED CELL DISTRIBUTION WIDTH 14.2 % (11.7-14.4)
[2021-06-11 06:21] LABS: INR 1.48; PROTHROMBIN TIME 18.7 seconds (11.9-14.5)
[2021-06-11 06:34] LABS: ANION GAP 8.3 mmol/L (8-16); CALCIUM 7.1 mg/dL (8.4-10.2); CREATININE, SERUM 0.91 mg/dL (0.72-1.25); POTASSIUM 3.3 mmol/L (3.5-5.1)
[2021-06-11] MEDS: ACETAMINOPHEN 325 MG TAB PO PRN ×2 (07:05→15:03)
[2021-06-11] MEDS: ASPIRIN 81 MG CHEW TAB PO SCH (09:05)
[2021-06-11] MEDS: CLOPIDOGREL BISULFATE 75 MG TAB PO SCH (09:06)
[2021-06-11] MEDS: FAMOTIDINE 20 MG TAB PO SCH ×2 (09:06→17:19)
[2021-06-11] MEDS: TAMSULOSIN HCL 0.4 MG CAP PO SCH (09:06)
[2021-06-11] MEDS: FINASTERIDE 5 MG TAB PO SCH (09:06)
[2021-06-11] MEDS: PANTOPRAZOLE SOD 40 MG TABEC PO SCH (09:53)
[2021-06-11] MEDS: NPH, HUMAN INSULIN ISOPHANE 100 UNIT/1 ML 3ML VIAL SQ SCH ×2 (09:58→21:00)
[2021-06-11] MEDS: INSULIN LISPRO 100 UNIT/1 ML 3ML VIAL SQ SCH ×4 (09:59→21:00)
[2021-06-11] MEDS ORDERED: CALCIUM GLUCONATE 10% INJ 9.3 MEQ in SODIUM CHLORIDE 0.9% 100 ML 100 ML IV ONE (12:30)
[2021-06-11] MEDS ORDERED: LISINOPRIL 2.5 MG TAB PO ONE (13:30)
[2021-06-11] MEDS: CEFTRIAXONE 2 GM in SODIUM CHLORIDE 0.9% 100 ML IV SCH (17:19)
[2021-06-11] MEDS: WARFARIN SOD 3 MG TAB PO SCH (17:19)
[2021-06-11] MEDS: ATORVASTATIN 20 MG TAB PO SCH (20:48)
[2021-06-11] MEDS: LATANOPROST(OPTH) 2.5 ML BTL OU SCH (20:48)
[2021-06-11] MEDS: DONEPEZIL HCL 5 MG TAB PO SCH (20:48)
[2021-06-12 00:10] VITALS: BP 142/58
[2021-06-12 04:00] VITALS: BP 161/66
[2021-06-12] MEDS: INSULIN LISPRO 100 UNIT/1 ML 3ML VIAL SQ SCH ×2 (07:30→11:30)
[2021-06-12] MEDS: PANTOPRAZOLE SOD 40 MG TABEC PO SCH (07:30)
[2021-06-12 08:00] VITALS: BP 154/64
[2021-06-12 08:47] VITALS: BP 154/64
[2021-06-12] MEDS: ASPIRIN 81 MG CHEW TAB PO SCH (09:41)
[2021-06-12] MEDS: FINASTERIDE 5 MG TAB PO SCH (09:41)
[2021-06-12] MEDS: FAMOTIDINE 20 MG TAB PO SCH (09:41)
[2021-06-12] MEDS: CLOPIDOGREL BISULFATE 75 MG TAB PO SCH (09:41)
[2021-06-12] MEDS: TAMSULOSIN HCL 0.4 MG CAP PO SCH (09:41)
[2021-06-12] MEDS: NPH, HUMAN INSULIN ISOPHANE 100 UNIT/1 ML 3ML VIAL SQ SCH (09:42)
[2021-06-12 12:07] VITALS: BP 130/90
[2021-06-12] MEDS: ACETAMINOPHEN 325 MG TAB PO PRN (12:20)
[2021-06-12] MEDS ORDERED: ONDANSETRON HCL 4 MG ORAL DISINTEGRATING TAB PO PRN (13:30)
[2021-06-12] MEDS ORDERED: WARFARIN SOD 3 MG TAB PO ONE (14:00)
== END 2021-06-12 15:44 | DRG 270 ==
LOC: ER 21:40 → ERHOLD 22:43 → MED/SURG3 06-01 01:16 → OBSVTOIN 06-02 08:47
PROVIDERS: ADMIT Internal Medicine; ATTEND Internal Medicine
PROC: 047K341 Dilation of Right Femoral Artery with Drug-eluting Intraluminal Device, using Drug-Coated Balloon, Percutaneous Approach (ICD-10-PCS; principal; 2021-06-05)
PROC: 04CK3ZZ Extirpation of Matter from Right Femoral Artery, Percutaneous Approach (ICD-10-PCS; 2021-06-05)
PROC: 0QBN0ZZ Excision of Right Metatarsal, Open Approach (ICD-10-PCS; 2021-06-06)
PROC: 02HV33Z Insertion of Infusion Device into Superior Vena Cava, Percutaneous Approach (ICD-10-PCS; 2021-06-08)
DX: E11.51 Type 2 diabetes mellitus with diabetic peripheral angiopathy without gangrene (principal); G93.41 Metabolic encephalopathy; G92 Toxic encephalopathy; K52.1 Toxic gastroenteritis and colitis; M86.671 Other chronic osteomyelitis, right ankle and foot; E11.69 Type 2 diabetes mellitus with other specified complication; E11.621 Type 2 diabetes mellitus with foot ulcer; E78.5 Hyperlipidemia, unspecified; R53.81 Other malaise; Z89.512 Acquired absence of left leg below knee; Z20.822 Contact with and (suspected) exposure to COVID-19; Z89.411 Acquired absence of right great toe; Z89.421 Acquired absence of other right toe(s); E11.22 Type 2 diabetes mellitus with diabetic chronic kidney disease; N18.9 Chronic kidney disease, unspecified; I12.9 Hypertensive chronic kidney disease with stage 1 through stage 4 chronic kidney disease, or unspecified chronic kidney disease; T40.2X5A Adverse effect of other opioids, initial encounter; Y92.230 Patient room in hospital as the place of occurrence of the external cause; F03.90 Unspecified dementia, unspecified severity, without behavioral disturbance, psychotic disturbance, mood disturbance, and anxiety; A08.4 Viral intestinal infection, unspecified; T36.95XA Adverse effect of unspecified systemic antibiotic, initial encounter; L97.514 Non-pressure chronic ulcer of other part of right foot with necrosis of bone; I70.235 Atherosclerosis of native arteries of right leg with ulceration of other part of foot; I70.222 Atherosclerosis of native arteries of extremities with rest pain, left leg; Z79.4 Long term (current) use of insulin
CPT/HCPCS: 36247; 36415; 36569; 37224; 37225; 71045; 75630; 80048; 80053; 80061; 80202; 81001; 82948; 83036; 83605; 83735; 84100; 84443; 85025; 85610; 85651; 87040; 87071; 87075; 87205; 87493; 88304; 88305; 88311; 93925; 96361; 97139; 99152; 99153; 99251; 99284; C1724; C1760; C1769; C1887; C1894; C2623; G0378; J0360; J0610; J0692; J0696; J1100; J1200; J2001; J2250; J2405; J3010; J3370; J7030; J7042; J7050; Q9967; U0002

== ENCOUNTER 2021-11-06 13:06 | Emergency (ER) | payer MEDICARE ==
[~2021-11-06] VITALS: Ht 162.6 cm; Wt 61.7 kg
[~2021-11-06 13:06] MED LIST changes: +FINASTERIDE5 MG PO
[2021-11-06] MEDS ORDERED: PIPERACILLIN/TAZOBACTAM 3.375 GM in SODIUM CHLORIDE 0.9% 50ML 50 ML IV ONE (13:30)
[2021-11-06] MEDS ORDERED: Vancomycin IV 1 GM in SODIUM CHLORIDE 0.9% 250ML 250 ML IV ONE (13:30)
[2021-11-06 13:37] LABS: BASOPHILS # (AUTO) 0.1 (0.0-0.1); BASOPHILS % 0.8 % (0.0-1.0); EOSINOPHILS # (AUTO) 0.1 (0.0-0.4); EOSINOPHILS % 1.1 % (0.0-6.0); HEMATOCRIT 41.3 % (38.2-49.6); HEMOGLOBIN 13.3 g/dL (14.0-18.0); LYMPHOCYTES # (AUTO) 1.2 (1.0-3.2); LYMPHOCYTES % 13.9 % (18.0-39.1); MEAN CORPUSCULAR HEMOGLOBIN 28.5 pg (28-32); MEAN CORPUSCULAR HGB CONC 32.2 g/dL (31-35); MEAN CORPUSCULAR VOLUME 88.6 fL (81-99); MONOCYTES # (AUTO) 0.6 (0.2-0.8); MONOCYTES % 6.7 % (4.4-11.3); NEUTROPHILS # (AUTO) 6.6 (2.1-6.9); NEUTROPHILS % 77.1 % (38.7-80.0); PLATELET COUNT 217 x10e3/uL (140-360); RED BLOOD COUNT 4.66 x10e6/uL (4.3-5.7); RED CELL DISTRIBUTION WIDTH 18.5 % (11.7-14.4)
[2021-11-06 14:05] LABS: ALBUMIN 3.6 g/dL (3.5-5.0); ALBUMIN/GLOBULIN RATIO 1.2 (0.8-2.0); ANION GAP 12.3 mmol/L (8-16); CALCIUM 8.7 mg/dL (8.4-10.2); CREATININE, SERUM 1.22 mg/dL (0.72-1.25); POTASSIUM 4.3 mmol/L (3.5-5.1)
[2021-11-06] MEDS ORDERED: CLINDAMYCIN HC150 MG PO (14:41)
[2021-11-06] MEDS ORDERED: DIPHENHYDRAMINE HCL 25 MG CAP PO ONE (16:00)
[2021-11-06] MEDS ORDERED: PREDNISONE 20 MG TAB PO SCH ×2 (16:15→16:30)
[2021-11-06 16:39] VITALS: BP 153/75
[2021-11-06] MEDS ORDERED: PREDNISONE 20 MG TAB PO ONE (17:00)
== END 2021-11-06 16:40 | disposition home or self-care (01) ==
LOC: ER 13:21
DX: L03.115 Cellulitis of right lower limb (principal); I12.9 Hypertensive chronic kidney disease with stage 1 through stage 4 chronic kidney disease, or unspecified chronic kidney disease; E11.22 Type 2 diabetes mellitus with diabetic chronic kidney disease; E11.65 Type 2 diabetes mellitus with hyperglycemia; N18.9 Chronic kidney disease, unspecified
CPT/HCPCS: 36415; 73630; 80053; 85025; 87040; 99283; J2543; J3370; J7050; J7512

== ENCOUNTER 2022-02-22 12:56 | Emergency (ER) | payer MEDICARE ==
[~2022-02-22] VITALS: Ht 162.6 cm; Wt 61.7 kg
[~2022-02-22 12:56] MED LIST changes: +CLINDAMYCIN HC150 MG PO
[2022-02-22 13:43] LABS: CLARITY,URINE CLOUDY (CLEAR); COLOR,URINE YELLOW (YELLOW)
[2022-02-22 13:44] LABS: KETONES,URINE NEGATIVE (NEGATIVE); LEUKOCYTE ESTERASE ,URINE MODERATE (NEGATIVE); NITRITE,URINE NEGATIVE (NEGATIVE); PROTEIN,URINE DIPSTICK 1+ (NEGATIVE); URINE UROBILINOGEN 0.2 mg/dL (0.2 - 1)
[2022-02-22 13:53] LABS: BACTERIA,URINE MANY /HPF; MUCUS,URINE FEW (RARE); RBC,URINE 0-5 /HPF (0-5); WBC,URINE (MAN) >50 /HPF (0-5)
[2022-02-22] MEDS ORDERED: BACTRIM DS TAB1 EACH PO (15:10)
[2022-02-22] MEDS ORDERED: KEFLEX125 MG/5 M PO (15:10)
[2022-02-22 15:31] VITALS: BP 165/71
== END 2022-02-22 15:31 | disposition home or self-care (01) ==
LOC: ER 14:42
DX: N39.0 Urinary tract infection, site not specified (principal); L03.115 Cellulitis of right lower limb; I12.9 Hypertensive chronic kidney disease with stage 1 through stage 4 chronic kidney disease, or unspecified chronic kidney disease; E11.22 Type 2 diabetes mellitus with diabetic chronic kidney disease; N18.9 Chronic kidney disease, unspecified; I25.10 Atherosclerotic heart disease of native coronary artery without angina pectoris; I73.9 Peripheral vascular disease, unspecified
CPT/HCPCS: 81001; 87086; 87186; 99282

== ENCOUNTER 2022-05-01 17:06 | Observation (INO) | payer MEDICARE ==
[~2022-05-01] VITALS: Ht 162.6 cm; Wt 61.7 kg
[~2022-05-01 17:06] MED LIST changes: +BACTRIM DS TAB1 EACH PO; +KEFLEX125 MG/5 M PO
[2022-05-01 18:02] LABS: BASOPHILS % 0.8 % (0.0-1.0); EOSINOPHILS # (AUTO) 0.1 (0.0-0.4); EOSINOPHILS % 1.2 % (0.0-6.0); HEMATOCRIT 38.7 % (38.2-49.6); HEMOGLOBIN 12.7 g/dL (14.0-18.0); LYMPHOCYTES # (AUTO) 1.1 (1.0-3.2); MEAN CORPUSCULAR HEMOGLOBIN 31.1 pg (28-32); MEAN CORPUSCULAR HGB CONC 32.8 g/dL (31-35); MEAN CORPUSCULAR VOLUME 94.6 fL (81-99); MONOCYTES # (AUTO) 0.4 (0.2-0.8); MONOCYTES % 8.4 % (4.4-11.3); NEUTROPHILS # (AUTO) 3.4 (2.1-6.9); NEUTROPHILS % 67.2 % (38.7-80.0); PLATELET COUNT 206 x10e3/uL (140-360); RED BLOOD COUNT 4.09 x10e6/uL (4.3-5.7); RED CELL DISTRIBUTION WIDTH 13.5 % (11.7-14.4)
[2022-05-01 18:20] LABS: ALANINE AMINOTRANSFERASE 15 IU/L (0-55); ALBUMIN 3.4 g/dL (3.5-5.0); ALBUMIN/GLOBULIN RATIO 1.2 (0.8-2.0); ALKALINE PHOSPHATASE 40 IU/L (40-150); ANION GAP 15.8 mmol/L (8-16); BLOOD UREA NITROGEN 44 mg/dL (7-26); BUN/CREATININE RATIO 21 (6-25); CALCIUM 8.2 mg/dL (8.4-10.2); CARBON DIOXIDE 22 mmol/L (22-29); CHLORIDE 104 mmol/L (98-107); CREATINE KINASE 78 IU/L (30-200); CREATININE, SERUM 2.14 mg/dL (0.72-1.25); GLUCOSE 197 mg/dL (74-118); POTASSIUM 4.8 mmol/L (3.5-5.1); SODIUM 137 mmol/L (136-145)
[2022-05-01] MEDS ORDERED: PRAVASTATIN 20 MG TAB PO SCH (19:00)
[2022-05-01] MEDS ORDERED: DEXTROSE 50% SYRINGE 50 ML IV PRN ×2 (19:30→19:45)
[2022-05-01] MEDS ORDERED: SODIUM CHLORIDE FLUSH 10 ML SYR INJ PRN (19:30)
[2022-05-01] MEDS ORDERED: ONDANSETRON HCL INJ 2MG/ML 2ML 2 MG/ML VIAL IV PRN (19:30)
[2022-05-01] MEDS ORDERED: Morphine 2mg Syringe 2 MG/ML SYR IV PRN (19:30)
[2022-05-01] MEDS ORDERED: ACETAMINOPHEN 325 MG TAB PO PRN (19:45)
[2022-05-01 19:59] LABS: CHOL/HDL RATIO 6.6 (3.9-4.7)
[2022-05-01] MEDS ORDERED: LATANOPROST(OPTH) 2.5 ML BTL OU SCH (21:00)
[2022-05-01] MEDS ORDERED: INSULIN REGULAR, HUMAN 100 UNIT/1 ML SQ SCH (21:00)
[2022-05-01] MEDS: INSULIN REGULAR, HUMAN 100 UNIT/1 ML SQ SCH (21:00)
[2022-05-01 23:18] VITALS: BP 152/59
[2022-05-02] MEDS ORDERED: LEVOTHYROXINE50 MCG PO (01:05)
[2022-05-02] MEDS ORDERED: HYDRALAZINE HCL10 MG PO (01:07)
[2022-05-02] MEDS ORDERED: XARELTO10 MG PO (01:08)
[2022-05-02 01:22] VITALS: BP 152/59
[2022-05-02 03:06] LABS: CREATINE KINASE 77 IU/L (30-200)
[2022-05-02 04:00] VITALS: BP 158/56
[2022-05-02 06:16] LABS: CHOL/HDL RATIO 7.1 (3.9-4.7)
[2022-05-02] MEDS: INSULIN REGULAR, HUMAN 100 UNIT/1 ML SQ SCH ×3 (07:30→16:30)
[2022-05-02 07:59] VITALS: BP 136/64
[2022-05-02] MEDS ORDERED: NPH, HUMAN INSULIN ISOPHANE 100 UNIT/1 ML 3ML VIAL SQ SCH (09:00)
[2022-05-02] MEDS ORDERED: ASPIRIN 325 MG TAB PO SCH (09:00)
[2022-05-02] MEDS ORDERED: ASPIRIN 81 MG ENTERIC COATED PO SCH (09:00)
[2022-05-02] MEDS: FAMOTIDINE 20 MG TAB PO SCH ×2 (09:00→17:00)
[2022-05-02] MEDS ORDERED: FINASTERIDE 5 MG TAB PO SCH (09:00)
[2022-05-02] MEDS ORDERED: TAMSULOSIN HCL 0.4 MG CAP PO SCH (09:00)
[2022-05-02 11:46] VITALS: BP 131/68
[2022-05-02 12:24] LABS: CREATINE KINASE 70 IU/L (30-200)
[2022-05-02] MEDS ORDERED: MELOXICAM7.5 MG PO (13:38)
[2022-05-02] MEDS ORDERED: ASPIRIN EC81 MG PO (13:38)
[2022-05-02] MEDS ORDERED: ONDANSETRON HCL 4 MG ORAL DISINTEGRATING TAB PO PRN (14:45)
[2022-05-02 16:03] VITALS: BP 124/54
== END 2022-05-02 18:45 | disposition home or self-care (01) ==
LOC: ER 17:18 → ERHOLD 19:33 → MED/SURG3 23:41
PROVIDERS: ADMIT Internal Medicine; ATTEND Internal Medicine
DX: R07.89 Other chest pain (principal); E11.9 Type 2 diabetes mellitus without complications; I73.9 Peripheral vascular disease, unspecified; E78.5 Hyperlipidemia, unspecified; Z89.512 Acquired absence of left leg below knee; Z20.822 Contact with and (suspected) exposure to COVID-19
CPT/HCPCS: 36415 ×2; 71045; 80053; 80061 ×2; 82550 ×2; 82553 ×2; 82948 ×2; 83036; 84484 ×2; 85025; 93005; 93306; 99251; 99284; G0378 ×2; J1817; U0002

== ENCOUNTER 2022-09-20 13:36 | Emergency (ER) | payer MEDICARE, OTHER ==
[~2022-09-20] VITALS: Ht 315 cm; Wt 61.7 kg
[~2022-09-20 13:36] MED LIST changes: +ASPIRIN EC81 MG PO; +HYDRALAZINE HCL10 MG PO; +LEVOTHYROXINE50 MCG PO; +MELOXICAM7.5 MG PO; +XARELTO10 MG PO
[2022-09-20] MEDS ORDERED: BACTRIM DS TAB1 EACH PO (15:49)
== END 2022-09-20 17:08 | disposition home or self-care (01) ==
LOC: ER 13:45
DX: S90.31XA Contusion of right foot, initial encounter (principal); W22.09XA Striking against other stationary object, initial encounter; Y93.E1 Activity, personal bathing and showering; Y92.89 Other specified places as the place of occurrence of the external cause; I10 Essential (primary) hypertension; E11.9 Type 2 diabetes mellitus without complications; I25.10 Atherosclerotic heart disease of native coronary artery without angina pectoris; Z89.512 Acquired absence of left leg below knee
CPT/HCPCS: 99282

== ENCOUNTER 2022-12-21 14:08 | Emergency (ER) | payer MEDICARE, OTHER ==
[~2022-12-21] VITALS: Ht 160 cm; Wt 54.0 kg
[2022-12-21] MEDS ORDERED: CLINDAMYCIN HC300 MG PO (15:06)
[2022-12-21 15:43] VITALS: BP 180/70
== END 2022-12-21 15:46 | disposition home or self-care (01) ==
LOC: ER 14:16
DX: E11.621 Type 2 diabetes mellitus with foot ulcer (principal); L97.419 Non-pressure chronic ulcer of right heel and midfoot with unspecified severity; I10 Essential (primary) hypertension; I25.10 Atherosclerotic heart disease of native coronary artery without angina pectoris; N28.9 Disorder of kidney and ureter, unspecified; I73.9 Peripheral vascular disease, unspecified; Z89.512 Acquired absence of left leg below knee
CPT/HCPCS: 36415; 82948; 99283

== ENCOUNTER 2024-06-22 13:43 | Emergency (ER) | payer MEDICARE, OTHER ==
[~2024-06-22] VITALS: Ht 160 cm; Wt 54.0 kg
[~2024-06-22 13:43] MED LIST changes: +CLINDAMYCIN HC300 MG PO
[2024-06-22 14:30] VITALS: TEMP 98.3
[2024-06-22 15:00] VITALS: PULSE 73; RESP 16
[2024-06-22 15:32] LABS: BASOPHILS # (AUTO) 0.1 (0.0-0.1); BASOPHILS % 0.7 % (0.0-1.0); EOSINOPHILS # (AUTO) 0.2 (0.0-0.4); EOSINOPHILS % 2.5 % (0.0-6.0); HEMOGLOBIN 12.8 g/dL (14.0-18.0); LYMPHOCYTES # (AUTO) 1.8 (1.0-3.2); LYMPHOCYTES % 25.1 % (18.0-39.1); MEAN CORPUSCULAR HEMOGLOBIN 30.8 pg (28-32); MEAN CORPUSCULAR HGB CONC 32.8 g/dL (31-35); MONOCYTES # (AUTO) 0.6 (0.2-0.8); MONOCYTES % 8.4 % (4.4-11.3); NEUTROPHILS # (AUTO) 4.6 (2.1-6.9); NEUTROPHILS % 63.2 % (38.7-80.0); PLATELET COUNT 183 x10e3/uL (140-360); RED BLOOD COUNT 4.15 x10e6/uL (4.3-5.7); RED CELL DISTRIBUTION WIDTH 13.3 % (11.7-14.4); WHITE BLOOD COUNT 7.26 x10e3/uL (4.8-10.8)
[2024-06-22 15:46] LABS: ALBUMIN 3.4 g/dL (3.5-5.0); ALBUMIN/GLOBULIN RATIO 1.3 (0.8-2.0); ANION GAP 11.2 mmol/L (8-16); BILIRUBIN,TOTAL 0.6 mg/dL (0.2-1.2); CALCIUM 8.7 mg/dL (8.4-10.2); POTASSIUM 4.2 mmol/L (3.5-5.1); TOTAL PROTEIN 6.1 g/dL (6.5-8.1)
[2024-06-22 15:48] LABS: BILIRUBIN,URINE NEGATIVE (NEGATIVE); CLARITY,URINE SL CLOUDY (CLEAR); COLOR,URINE YELLOW (YELLOW); GLUCOSE, URINE NEGATIVE (NEGATIVE); KETONES,URINE TRACE (NEGATIVE); LEUKOCYTE ESTERASE ,URINE MODERATE (NEGATIVE); NITRITE,URINE POSITIVE (NEGATIVE); PH,URINE 5.5 (5 - 7); PROTEIN,URINE DIPSTICK TRACE (NEGATIVE); URINE UROBILINOGEN 0.2 mg/dL (0.2 - 1)
[2024-06-22 15:59] LABS: BACTERIA,URINE MANY /HPF
[2024-06-22 16:42] LABS: CREATININE, SERUM 1.6 mg/dL (0.72-1.25)
[2024-06-22] MEDS: SODIUM CHLORIDE 0.9% 500ML 500 ML IV ONE (16:42)
[2024-06-22] MEDS ORDERED: CEFDINIR300 MG PO (18:39)
[2024-06-23 00:07] VITALS: BP 127/71; PULSE 58; RESP 18; TEMP 97.2; O2SAT 100
== END 2024-06-22 19:43 | disposition home or self-care (01) ==
LOC: ER 13:54
DX: R30.0 Dysuria (principal); N39.0 Urinary tract infection, site not specified; N28.9 Disorder of kidney and ureter, unspecified; E11.65 Type 2 diabetes mellitus with hyperglycemia; I10 Essential (primary) hypertension; I25.10 Atherosclerotic heart disease of native coronary artery without angina pectoris; I73.9 Peripheral vascular disease, unspecified; Z89.512 Acquired absence of left leg below knee
CPT/HCPCS: 36415; 80053; 81001; 83735; 85025; 87086; 87186; 99284; J0696; J7040

== ENCOUNTER 2024-11-19 13:43 | Emergency (ER) | payer MEDICARE ==
[~2024-11-19] VITALS: Ht 160 cm; Wt 54.0 kg
[~2024-11-19 13:43] MED LIST changes: +CEFDINIR300 MG PO
[2024-11-19 15:22] VITALS: PULSE 70; RESP 18; TEMP 98.4; O2SAT 97
== END 2024-11-19 15:32 | disposition home or self-care (01) ==
LOC: ER 14:59
DX: S90.31XA Contusion of right foot, initial encounter (principal); X58.XXXA Exposure to other specified factors, initial encounter; Y92.89 Other specified places as the place of occurrence of the external cause; I12.9 Hypertensive chronic kidney disease with stage 1 through stage 4 chronic kidney disease, or unspecified chronic kidney disease; E11.22 Type 2 diabetes mellitus with diabetic chronic kidney disease; N18.9 Chronic kidney disease, unspecified; I25.10 Atherosclerotic heart disease of native coronary artery without angina pectoris; I73.9 Peripheral vascular disease, unspecified; Z89.512 Acquired absence of left leg below knee
CPT/HCPCS: 99282

== ENCOUNTER 2025-07-01 12:30 | Inpatient (IN) | payer MEDICARE ==
[2025-07-01] VITALS (8 sets, daily range): BP systolic 141–156; BP diastolic 70–84; PULSE 76–82; RESP 16–18; TEMP 97.6–98.9; O2SAT 100
[~2025-07-01] VITALS: Ht 162.6 cm; Wt 54.4 kg
[2025-07-01 13:49] LABS: BASOPHILS % 0.6 % (0.0-1.0); EOSINOPHILS % 1.1 % (0.0-6.0); LYMPHOCYTES % 16.7 % (18.0-39.1); MONOCYTES % 5.6 % (4.4-11.3); NEUTROPHILS % 75.7 % (38.7-80.0); RED CELL DISTRIBUTION WIDTH 13.9 % (11.7-14.4)
[2025-07-01 13:54] LABS: INR 2.15
[2025-07-01 14:01] LABS: EST GLOMERULAR FILTRATION RATE 61.0 ML/MIN (>=60)
[2025-07-01] MEDS: SODIUM CHLORIDE 0.9% 1000ML 1,000 ML IV SCH (16:27)
[2025-07-01] MEDS: VANCOMYCIN 1.25GM/250 ML (PEG) 250 ML IV ONE (16:35)
[2025-07-01 18:35] LABS: LEUKOCYTE ESTERASE ,URINE 1+ (NEGATIVE); PROTEIN,URINE DIPSTICK 1+ (NEGATIVE); URINE UROBILINOGEN 0.2 mg/dL (0.2 - 1)
[2025-07-01 18:45] LABS: EPITHELIAL CELLS,URINE FEW /LPF; WBC,URINE (MAN) >50 /HPF (0-5)
[2025-07-01] MEDS ORDERED: ULTRAM 50MG50 MG PO (19:52)
[2025-07-01] MEDS ORDERED: DORZOLAMIDE HCL10 ML OP (19:52)
[2025-07-01] MEDS ORDERED: ATORVASTATIN CA20 MG PO (19:52)
[2025-07-02] VITALS (13 sets, daily range): BP systolic 128–160; BP diastolic 51–79; PULSE 69–83; RESP 17–20; TEMP 97.5–98.7; O2SAT 94–99
[2025-07-02] MEDS ORDERED: HYDRALAZINE HCL 20 MG/ML VIAL IV PRN (00:30)
[2025-07-02] MEDS ORDERED: ALBUTEROL/IPRATROPIUM 3 ML NEB NEB PRN (00:30)
[2025-07-02] MEDS ORDERED: SIMETHICONE 80 MG CHEW PO PRN (00:30)
[2025-07-02] MEDS ORDERED: DEXTROSE 50% SYRINGE 50 ML IV PRN ×2 (00:30)
[2025-07-02] MEDS ORDERED: DOCUSATE SODIUM 100 MG CAP PO PRN (00:30)
[2025-07-02] MEDS ORDERED: BENZONATATE 100 MG CAP PO PRN (00:30)
[2025-07-02] MEDS ORDERED: ONDANSETRON HCL INJ 2MG/ML 2ML 2 MG/ML VIAL IV PRN (00:30)
[2025-07-02] MEDS ORDERED: LIDOCAINE 4% PATCH TP PRN (00:30)
[2025-07-02 07:00] LABS: BASOPHILS % 1.1 % (0.0-1.0); EOSINOPHILS % 2.8 % (0.0-6.0); LYMPHOCYTES % 20.3 % (18.0-39.1); MONOCYTES % 9.3 % (4.4-11.3); NEUTROPHILS % 66.0 % (38.7-80.0); RED CELL DISTRIBUTION WIDTH 13.9 % (11.7-14.4)
[2025-07-02] MEDS: INSULIN LISPRO 100 UNIT/1 ML 3ML VIAL SQ SCH (07:30)
[2025-07-02 07:33] LABS: EST GLOMERULAR FILTRATION RATE 72.0 ML/MIN (>=60)
[2025-07-02] MEDS: TAMSULOSIN HCL 0.4 MG CAP PO SCH (09:01)
[2025-07-02] MEDS: ASPIRIN 81 MG ENTERIC COATED PO SCH (09:01)
[2025-07-02] MEDS: FINASTERIDE 5 MG TAB PO SCH (09:01)
[2025-07-02] MEDS: ATORVASTATIN 20 MG TAB PO SCH (09:01)
[2025-07-02] MEDS: PANTOPRAZOLE SOD 40 MG TABEC PO SCH (09:02)
[2025-07-02] MEDS: SODIUM CHLORIDE 0.9% 1000ML 1,000 ML IV SCH (14:00)
[2025-07-02] MEDS: ACETAMINOPHEN 325 MG TAB PO PRN (15:24)
[2025-07-02] MEDS ORDERED: ENOXAPARIN SOD INJ 40 MG/0.4 ML SYR SC SCH (17:00)
[2025-07-03] VITALS (10 sets, daily range): BP systolic 108–171; BP diastolic 55–68; PULSE 73–84; RESP 18–21; TEMP 97.6–98.4; O2SAT 95–100
[2025-07-03 05:47] LABS: BASOPHILS % 0.5 % (0.0-1.0); EOSINOPHILS % 2.2 % (0.0-6.0); LYMPHOCYTES % 12.3 % (18.0-39.1); MONOCYTES % 10.0 % (4.4-11.3); NEUTROPHILS % 74.9 % (38.7-80.0); RED CELL DISTRIBUTION WIDTH 14.0 % (11.7-14.4)
[2025-07-03 05:56] LABS: INR 2.16
[2025-07-03 06:06] LABS: EST GLOMERULAR FILTRATION RATE 68.0 ML/MIN (>=60)
[2025-07-03] MEDS: CLOPIDOGREL BISULFATE 75 MG TAB PO SCH (09:41)
[2025-07-03] MEDS: Vancomycin IV 1 GM in SODIUM CHLORIDE 0.9% 250ML 250 ML IV SCH (12:15)
[2025-07-04] VITALS (9 sets, daily range): BP systolic 138–157; BP diastolic 48–69; PULSE 68–83; RESP 18–21; TEMP 97.2–98.6; O2SAT 96–100
[2025-07-04] MEDS: MELATONIN 5 MG TABLET PO PRN (00:30)
[2025-07-04] MEDS: HEPARIN SOD/SOD CHLORIDE 2,000 ML ONE (09:06)
[2025-07-04] MEDS: IOPAMIDOL 370 MG/ML 100 ML INFUS..BTL INJ ONE (09:07)
[2025-07-04] MEDS: VERAPAMIL HCL 2.5 MG/ML 2 ML VIAL ONE (09:07)
[2025-07-04] MEDS: LIDOCAINE HCL 2% LOCAL 20 ML VIAL ONE (09:07)
[2025-07-04] MEDS: SODIUM CHLORIDE 0.9% 1000ML 2,000 ML ONE (09:07)
[2025-07-04] MEDS: FENTANYL CITRATE/PF 100MCG/2 ML INJ ONE (09:07)
[2025-07-04] MEDS: MIDAZOLAM HCL 2 MG/2 ML VIAL ONE (09:07)
[2025-07-04] MEDS: CLOPIDOGREL BISULFATE 75 MG TAB ONE (09:08)
[2025-07-04] MEDS: SODIUM CHLORIDE 0.9% 1000ML 1,000 ML ONE (09:08)
[2025-07-04 09:41] LABS: BASOPHILS % 0.5 % (0.0-1.0); EOSINOPHILS % 1.6 % (0.0-6.0); LYMPHOCYTES % 15.7 % (18.0-39.1); MONOCYTES % 13.4 % (4.4-11.3); NEUTROPHILS % 68.6 % (38.7-80.0); RED CELL DISTRIBUTION WIDTH 13.9 % (11.7-14.4)
[2025-07-04 10:14] LABS: EST GLOMERULAR FILTRATION RATE 84.0 ML/MIN (>=60)
[2025-07-04 11:08] LABS: INR 1.49
[2025-07-04] MEDS: CALCIUM GLUC 1 G/50 ML NACL 50 ML IV SCH (11:10)
[2025-07-04] MEDS: POTASSIUM CHLORIDE 20 MEQ TAB CR PO PRN (11:10)
[2025-07-04] MEDS ORDERED: ENOXAPARIN 30 MG/0.3 ML SYR SC ONE (16:30)
[2025-07-04] MEDS: ENOXAPARIN SOD INJ 60 MG/0.6 ML SYR SC ONE (17:05)
[2025-07-04] MEDS: CALCIUM CARBONATE 500 MG CHEWABLE TABS PO SCH (17:05)
[2025-07-04 23:35] LABS: EST GLOMERULAR FILTRATION RATE 67.0 ML/MIN (>=60)
[2025-07-05] VITALS (7 sets, daily range): BP systolic 139–175; BP diastolic 47–71; PULSE 71–85; RESP 16–20; TEMP 97.5–98; O2SAT 96–100
[2025-07-05 06:30] LABS: BASOPHILS % 0.8 % (0.0-1.0); EOSINOPHILS % 2.7 % (0.0-6.0); LYMPHOCYTES % 15.5 % (18.0-39.1); MONOCYTES % 11.7 % (4.4-11.3); NEUTROPHILS % 68.8 % (38.7-80.0); RED CELL DISTRIBUTION WIDTH 14.1 % (11.7-14.4)
[2025-07-05 07:05] LABS: EST GLOMERULAR FILTRATION RATE 64.0 ML/MIN (>=60)
[2025-07-05 07:09] LABS: INR 1.13
[2025-07-05] MEDS ORDERED: FENTANYL CITRATE/PF 100MCG/2 ML INJ ONE (11:23)
[2025-07-05] MEDS ORDERED: PROPOFOL IV EMULSION 10 MG/ML 20 ML VIAL ONE (11:23)
[2025-07-05] MEDS ORDERED: LIDOCAINE HCL 2% LOCAL INJ 5 ML SDV VIAL INJ ONE (11:26)
[2025-07-05] MEDS ORDERED: ONDANSETRON HCL INJ 2MG/ML 2ML 2 MG/ML VIAL ONE (11:26)
[2025-07-05] MEDS ORDERED: DEXAMETHASONE SOD PHOS INJ 4 MG/ML SDV ONE (11:26)
[2025-07-05] MEDS ORDERED: EPHEDRINE SULFATE INJ 50 MG/ML VIAL ONE (12:11)
[2025-07-05] MEDS: Vancomycin IV 1 GM in SODIUM CHLORIDE 0.9% 250ML 250 ML IV SCH (20:41)
[2025-07-05] MEDS: ENOXAPARIN SOD INJ 60 MG/0.6 ML SYR SC ONE (20:42)
[2025-07-05] MEDS: WARFARIN SOD 3 MG TAB PO SCH (20:42)
[2025-07-06] VITALS (9 sets, daily range): BP systolic 135–159; BP diastolic 52–74; PULSE 75–80; RESP 16–20; TEMP 97.2–98.1; O2SAT 95–100
[2025-07-06 06:11] LABS: BASOPHILS % 0.2 % (0.0-1.0); EOSINOPHILS % 0.1 % (0.0-6.0); LYMPHOCYTES % 10.3 % (18.0-39.1); MONOCYTES % 10.6 % (4.4-11.3); NEUTROPHILS % 78.4 % (38.7-80.0); RED CELL DISTRIBUTION WIDTH 13.8 % (11.7-14.4)
[2025-07-06 06:38] LABS: INR 1.04
[2025-07-06 06:51] LABS: EST GLOMERULAR FILTRATION RATE 68.0 ML/MIN (>=60)
[2025-07-06] MEDS: AMLODIPINE BESYLATE 5 MG TAB PO SCH (09:50)
[2025-07-06] MEDS: WARFARIN SOD 5 MG TAB PO SCH (17:31)
[2025-07-06] MEDS: ENOXAPARIN SOD INJ 60 MG/0.6 ML SYR SC SCH (21:21)
[2025-07-07] VITALS (9 sets, daily range): BP systolic 93–166; BP diastolic 40–74; PULSE 78–94; RESP 16–18; TEMP 97.6–98.9; O2SAT 95–100
[2025-07-07] MEDS: WARFARIN SOD 2.5 MG TAB PO ONE (17:13)
[2025-07-08] VITALS (12 sets, daily range): BP systolic 117–152; BP diastolic 43–56; PULSE 69–83; RESP 16–21; TEMP 97.4–98.9; O2SAT 95–97
[2025-07-08] MEDS: Vancomycin IV 1 GM in SODIUM CHLORIDE 0.9% 250ML 250 ML IV SCH (13:22)
[2025-07-08 15:59] LABS: INR 1.86
[2025-07-09] VITALS (8 sets, daily range): BP systolic 114–147; BP diastolic 42–57; PULSE 72–80; RESP 16–19; TEMP 97.6–98.6; O2SAT 95–100
[2025-07-09 05:44] LABS: BASOPHILS % 0.8 % (0.0-1.0); EOSINOPHILS % 4.1 % (0.0-6.0); LYMPHOCYTES % 17.0 % (18.0-39.1); MONOCYTES % 9.5 % (4.4-11.3); NEUTROPHILS % 68.3 % (38.7-80.0); RED CELL DISTRIBUTION WIDTH 14.3 % (11.7-14.4)
[2025-07-09 05:57] LABS: INR 2.33
[2025-07-09 06:18] LABS: EST GLOMERULAR FILTRATION RATE 71.0 ML/MIN (>=60)
[2025-07-09] MEDS: WARFARIN SOD 3 MG TAB PO SCH (16:32)
[2025-07-09] MEDS ORDERED: PLAVIX75 MG PO (16:49)
[2025-07-09] MEDS ORDERED: DOXYCYCLINE HY100 MG PO (16:49)
[2025-07-09] MEDS ORDERED: LOSARTAN POTASS25 MG PO (16:51)
[2025-07-10] VITALS (7 sets, daily range): BP systolic 101–140; BP diastolic 43–62; PULSE 73–79; RESP 17–20; TEMP 97.6–98.1; O2SAT 95–100
[2025-07-10 07:17] LABS: INR 2.38
[2025-07-10] MEDS: CLOPIDOGREL BISULFATE 75 MG TAB PO SCH (08:48)
[2025-07-10] MEDS: DOXYCYCLINE HYCLATE TABLET 100 MG TAB PO SCH (08:51)
[2025-07-11] VITALS (10 sets, daily range): BP systolic 124–132; BP diastolic 58–91; PULSE 72–78; RESP 18–20; TEMP 97.8–98.8; O2SAT 94–100
[2025-07-11 06:32] LABS: INR 2.4
[2025-07-12] VITALS: BP 147/58; PULSE 78; RESP 18; TEMP 98.3; O2SAT 100
[2025-07-12 04:00] VITALS: BP 124/54; PULSE 72; RESP 20; TEMP 97.7; O2SAT 100
[2025-07-12 06:28] VITALS: PULSE 78; RESP 20; O2SAT 96
[2025-07-12 07:11] LABS: INR 2.47
[2025-07-12 07:41] VITALS: BP 128/42; PULSE 71; RESP 18; TEMP 98.6; O2SAT 100
[2025-07-12 07:59] VITALS: BP 128/42; PULSE 71; RESP 18; TEMP 98.6; O2SAT 100
[2025-07-12] MEDS ORDERED: ONDANSETRON HCL 4 MG ORAL DISINTEGRATING TAB PO PRN (11:15)
[2025-07-12 11:41] VITALS: BP 140/58; PULSE 72; RESP 18; TEMP 97; O2SAT 99
[2025-07-12] MEDS: WARFARIN SOD 3 MG TAB PO ONE (12:04)
== END 2025-07-12 12:45 | disposition home or self-care (01) | DRG 253 ==
LOC: ER 13:34 → ERHOLD 15:57 → MED/SURG3 17:40
PROVIDERS: ADMIT Internal Medicine; ATTEND Internal Medicine
PROC: 047K341 Dilation of Right Femoral Artery with Drug-eluting Intraluminal Device, using Drug-Coated Balloon, Percutaneous Approach (ICD-10-PCS; principal; 2025-07-02)
PROC: 047R3ZZ Dilation of Right Posterior Tibial Artery, Percutaneous Approach (ICD-10-PCS; 2025-07-02)
PROC: B41D1ZZ Fluoroscopy of Aorta and Bilateral Lower Extremity Arteries using Low Osmolar Contrast (ICD-10-PCS; 2025-07-02)
PROC: 05HY33Z Insertion of Infusion Device into Upper Vein, Percutaneous Approach (ICD-10-PCS; 2025-07-04)
PROC: 0QBN0ZZ Excision of Right Metatarsal, Open Approach (ICD-10-PCS; 2025-07-05)
DX: E11.52 Type 2 diabetes mellitus with diabetic peripheral angiopathy with gangrene (principal); I70.92 Chronic total occlusion of artery of the extremities; L03.115 Cellulitis of right lower limb; L02.611 Cutaneous abscess of right foot; M86.171 Other acute osteomyelitis, right ankle and foot; I96 Gangrene, not elsewhere classified; N39.0 Urinary tract infection, site not specified; B95.8 Unspecified staphylococcus as the cause of diseases classified elsewhere; L97.512 Non-pressure chronic ulcer of other part of right foot with fat layer exposed; I25.10 Atherosclerotic heart disease of native coronary artery without angina pectoris; E11.621 Type 2 diabetes mellitus with foot ulcer; E11.628 Type 2 diabetes mellitus with other skin complications; I48.0 Paroxysmal atrial fibrillation; N40.1 Benign prostatic hyperplasia with lower urinary tract symptoms; B95.62 Methicillin resistant Staphylococcus aureus infection as the cause of diseases classified elsewhere; I70.221 Atherosclerosis of native arteries of extremities with rest pain, right leg; E78.5 Hyperlipidemia, unspecified; I10 Essential (primary) hypertension; Z89.411 Acquired absence of right great toe; Z89.421 Acquired absence of other right toe(s); Z79.4 Long term (current) use of insulin; Z79.82 Long term (current) use of aspirin; Z79.890 Hormone replacement therapy; Z79.01 Long term (current) use of anticoagulants; Z89.512 Acquired absence of left leg below knee; Z95.5 Presence of coronary angioplasty implant and graft
CPT/HCPCS: 36245; 36415; 36569; 37226; 37228; 37246; 71045; 75710; 80048; 80053; 80202; 81001; 82948; 83036; 85025; 85610; 85730; 87040; 87071; 87075; 87086; 87186; 87205; 88304; 88305; 88311; 93306; 94799; 99152; 99153; 99252; 99284; C1725; C1760; C1769; C1876; C1887; C1894; C2623; J0692; J1100; J1650; J2003; J2250; J2405; J2470; J3373; J7030; J7050; Q9967